=== PATIENT | male | born 1975 | race Hispanic/Latino ===

== ENCOUNTER 2019-06-19 17:23 | Inpatient (IN) | payer OTHER ==
[2019-06-19] MEDS ORDERED: LORazepam 2 MG/ML VIAL IV ONE (18:06)
[2019-06-19] MEDS ORDERED: SODIUM CHLORIDE 0.9% 1000 ML 1,000 ML IV ONE ×2 (18:06→21:04)
[2019-06-19] MEDS ORDERED: ONDANSETRON 4 MG/2 ML INJ IV ONE (18:08)
[2019-06-19] MEDS ORDERED: MORPHINE 4 MG/1 ML INJ IV ONE (18:09)
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
[2019-06-19 18:41] LABS: Basophils % (Auto) 0.9 % (0.0-1.8); Eosinophils # (Auto) 0.1 K/mm3 (0.0-0.4); Eosinophils % (Auto) 1.1 % (0.0-4.3); Hematocrit 53.5 % (35.5-45.6); Hemoglobin 18.3 gm/dl (11.8-15.2); Lymphocytes # (Auto) 1.2 K/mm3 (1.2-5.4); Lymphocytes % (Auto) 22.8 % (13.4-35.0); Mean Corpuscular HGB Conc 34 % (32-34); Mean Corpuscular Volume 97 fl (84-94); Monocytes # (Auto) 0.7 K/mm3 (0.0-0.8); Monocytes % (Auto) 12.9 % (0.0-7.3); Red Blood Count 5.51 M/mm3 (3.65-5.03); Red Cell Distribution Width 13.6 % (13.2-15.2)
[2019-06-19] MEDS ORDERED: THIAMINE 100 MG, FOLIC ACID 1 MG, MULTIPLE VITAMIN INJ, ADULT 10 ML in SODIUM CHLORIDE ... IV ONE (19:00)
[2019-06-19 19:06] LABS: Alanine Aminotransferase 37 units/L (7-56); Albumin 4.5 g/dL (3.9-5); BUN/Creatinine Ratio 11; Blood Urea Nitrogen 8 mg/dL (9-20); Hemolysis Index 5
--- NOTE | 2019-06-19 20:10 | Cat Scan Report ---
CT abdomen pelvis w con INDICATION / CLINICAL INFORMATION: n,v, abd pain, hx of exlap etoh abuse. TECHNIQUE: Routine CT of the abdomen and pelvis with IV contrast All CT scans at this location are performed usi ng CT dose reduction for ALARA by means of automated exposure control. COMPARISON: None available. FINDINGS: Abdomen and pelvis: There is a moderate-sized collection within the anterior fascia of the mid and lo wer abdominal wall that measures approximately 8 x 8 x 3 cm. The liver, gallbladder, spleen, pancreas adrenal glands and kidneys are unremarkable. No free air or free fluid. No bowel obstruction. The appendix is unremarkable. Sigmoid diverticulosis without divert iculitis. Urinary bladder is unremarkable. There is thoracolumbar type degenerative change. IMPRESSION: 1. Prominent collection along the anterior abdominal wall measuring 8 x 8 x 3 cm, as above. This coul d be secondary to abscess versus postoperative collection versus chronic hematoma. 2. Fatty liver. Signer Name: Natanael Cabello MD Signed: 06/19/2019 8:06 PM Workstation Name: [id number]
[2019-06-19 20:11] LABS: Platelet Count 141 K/mm3 (140-440)
--- NOTE | 2019-06-19 21:45 | History and Physical Report ---
History of Present Illness History of present illness: 44-year-old male with no medical history comes emergency room with complaints of abdominal pain that started 2 to 3 weeks ago. Pain is in the left lower quadrant which he describes as a sharp pain, lasting for hours, intensity 5-10, no radiation, cannot identify exacerbating or alleviating factors. Pain was better with pain medication given in the emergency room. Also complains of naus ea vomiting x4 weeks. He has a history of ex lap and hernia repair Review Of Systems: Constitutional: no weight loss, fever, chills Ears, eyes, nose, mouth and throat: no nasal congestion, no nasal discharge, no sinus pressure, blurry vision, diplopia Neck: No neck pain or rigidity. Cardiovascular: No palpitations, chest pain Respiratory: No shortness of breath, cough Gastrointestinal: No hematochezia Genitourinary : no dysuria, frequency Musculoskeletal: no muscle ache , joint pain Integumentary: no rash, no pruritis Neurological: no parathesias, focal weakness Endocrine: no cold or heat intolerance, no polyuria or polydipsia Hematologic/Lymphatic: no easy bruising, no easy bleeding, no gland swelling Allergic/Immunologic: no urticaria, no angioedema. PAST MEDICAL HISTORY: None PAST SURGICAL HISTORY: Ex lap, hernia repair SOCIAL HISTORY: Drinks 5 beers a day, smoked 2 packs a day, no drugs FAMILY HISTORY: Hypertension Medications and Allergies Allergies Allergy/AdvReac Type Severity Reaction Status Date / Time No Known Allergies Allergy Unverified 06/19/19 17:42 Home Medications Medication Instructions Recorded Confirmed Last Taken Type No Known Home Medications [No 06/19/19 06/19/19 Unknown History Reported Home Medications] Active Meds: Active Medications Sodium Chloride (Nacl 0.9% 1000 Ml) 1,000 mls @ 999 mls/hr IV BOLUS ONE Stop: 06/19/19 22:04 Last Admin: 06/19/19 21:08 Dose: 999 mls/hr Documented by: Lorazepam (Ativan) 4 mg IV Q1HR PRN PRN Reason: CIBLAINE-Ar 16-25 Lorazepam (Ativan) 2 mg PO Q1HR PRN PRN Reason: WISAM-Ar 8-15 Exam - Physical Exam Narrative exam: Gen. appearance: Patient lying in bed, no apparent distress HEENT: Normocephalic, atraumatic, pupils equally round and reactive to light, extraocular movement intact, and no sclericterus,. No JVD or thyromegaly or nodule,neck supple, no carotid bruit ,mucous membranes moist, no exudate or e rythema Heart: S1, S2, regular rate and rhythm Lungs: Clear bilaterally, breathing comfortable Abdomen: Positive bowel sounds, tender in the left lower quadrant, no rebound or guard nondistended, no organomegaly Extremity: no edema, cyanosis, clubbing Skin: No rash, nodules, warm, dry Neuro: speech is fluent, cranial nerves II to XII intact, motor and sensory intact - Constitutional Vitals: Temp Pulse Resp BP Pulse Ox 98.4 F 98 H 20 130/82 94 06/19/19 19:11 06/19/19 21:01 06/19/19 21:01 06/19/19 21:01 06/19/19 21:01 Results - Labs CBC & Chem 7: 06/19/19 18:23 06/19/19 18:23 Labs: Abnormal lab results 06/19/19 06/19/19 06/19/19 Range/Units 18:23 18:23 18:23 RBC 5.51 H (3.65-5.03) M/mm3 Hgb 18.3 H (11.8-15.2) gm/dl Hct 53.5 H (35.5-45.6) % MCV 97 H (84-94) fl MCH 33 H (28-32) pg [place] % (Auto) 12.9 H (0.0-7.3) % Carbon Dioxide 20 L (22-30) mmol/L BUN 8 L (9-20) mg/dL Creatinine 0.7 L (0.8-1.5) mg/dL Glucose 108 H (75-100) mg/dL AST 56 H (5-40) units/L Plasma/Serum Alcohol 0.20 H (0-0.07) % - Imaging and Cardiology CT scan - abdomen: report reviewed CT scan - pelvis: report reviewed Assessment and Plan Assessment Abdominal pain Fluid collection possible abscess versus hematoma Doubt abscess, patient without fever or white count Hold antibiotics for now, start IV fluid, surgery was consulted to see the patient IV morphine Alcohol abuse Start CIWA protocol with IV Ativan DVT prophylaxis
[2019-06-19] MEDS: LORazepam 2 MG TAB PO PRN (21:53)
[2019-06-19 21:58] LABS: Bilirubin,Urine NEG (Negative); Blood,Urine NEG (Negative); Color,Urine Yellow (Yellow); Mucus,Urine FEW /HPF; Protein,Urine <15 mg/dL mg/dL (Negative); Urobilinogen,Urine < 2.0 mg/dL (<2.0)
[2019-06-19 22:04] LABS: Amphetamine Screen,Urine PRESUMPTIVE NEGATIVE; Benzodiazepines Screen,Urine PRESUMPTIVE NEGATIVE; Cannabinoid Screen,Urine PRESUMPTIVE NEGATIVE; Cocaine Screen,Urine PRESUMPTIVE NEGATIVE; Methadone Screen,Urine PRESUMPTIVE NEGATIVE; Opiate Screen,Urine PRESUMPTIVE NEGATIVE
[2019-06-19] MEDS ORDERED: ACETAMINOPHEN 325 MG TAB PO PRN (22:24)
[2019-06-19] MEDS ORDERED: MORPHINE 2 MG/1 ML INJ IV PRN (22:24)
[2019-06-19] MEDS ORDERED: SODIUM CHLORIDE 0.45% 1000 ML 1,000 ML IV ONE (22:41)
[2019-06-19] MEDS: SODIUM CHLORIDE 0.45% 1000 ML 1,000 ML IV SCH (22:54)
[2019-06-20] MEDS: LORazepam 2 MG TAB PO PRN (04:11)
[2019-06-20 06:41] LABS: Basophils # (Auto) 0.1 K/mm3 (0.0-0.1); Basophils % (Auto) 1.4 % (0.0-1.8); Eosinophils # (Auto) 0.1 K/mm3 (0.0-0.4); Eosinophils % (Auto) 1.4 % (0.0-4.3); Hematocrit 49.6 % (35.5-45.6); Hemoglobin 17.1 gm/dl (11.8-15.2); Lymphocytes # (Auto) 1.4 K/mm3 (1.2-5.4); Lymphocytes % (Auto) 23.9 % (13.4-35.0); Mean Corpuscular HGB Conc 35 % (32-34); Mean Corpuscular Volume 98 fl (84-94); Monocytes # (Auto) 0.7 K/mm3 (0.0-0.8); Platelet Count 121 K/mm3 (140-440); Red Blood Count 5.08 M/mm3 (3.65-5.03); Red Cell Distribution Width 13.5 % (13.2-15.2)
[2019-06-20 07:10] LABS: BUN/Creatinine Ratio 11; Blood Urea Nitrogen 9 mg/dL (9-20); Calcium 8.5 mg/dL (8.4-10.2); Hemolysis Index 6
[2019-06-20] MEDS: LORazepam 2 MG/ML VIAL IV PRN ×2 (12:20→20:38)
--- NOTE | 2019-06-20 12:48 | Progress Note ---
Assessment and Plan Full consult dictated: 44 y/o alcoholic male admitted with non specific c/o abd pain and vomiting x 3 wks. Pt on DT's protocol and currently sedated. not much history able to be obtained. But pt states had "lump" on abd wall since his hernia surg around 2 years ago. PE - abd wall mass is fixed and non tender. consistent with possi ble hematoma. No real signs of incarcerated hernia. CT - no radiologist available for direct review but area does appear to be consistend with a chronic hematoma. no signs of bowel obst or other gross pathology. imp: non specific abd pain. no clinical or radiographic evidence of sbo, incar cerated hernia or other acute pathology. attempt cl liq diet as jordin review films with radiologist once one is available will follow History of Present Illness History of present illness: 44-year-old male with no medical history comes emergency room with complaints of abdominal pain that started 2 to 3 weeks ago. Pain is in the left lower quadrant which he describes as a sharp pain, lasting for hours, intensity 5-10, no radiation, cannot identify exacerbating or alleviating factors. Pain was better with pain medication given in the emergency room. Also complains of nausea vomiting x4 weeks. He has a history of ex lap and hernia repair Review Of Systems: Constitutional: no weight loss, fever, chills Ears, eyes, nose, mouth and throat: no nasal congestion, no nasal discharge, no sinus pressure, blurry vision, diplopia Neck: No neck pain or rigidity. Cardiovascular: No palpitations, chest pain Respiratory: No shortness of breath, cough Gastrointestinal: No hematochezia Genitourinary : no dysuria, frequency Musculoskeletal: no muscle ache , joint pain Integumentary: no rash, no pruritis Neurological: no parathesias, focal weakness Endocrine: no cold or heat intolerance, no polyuria or polydipsia Hematologic/Lymphatic: no easy bruising, no easy bleeding, no gland swelling Allergic/Immunologic: no urticaria, no angioedema. PAST MEDICAL HISTORY: None PAST SURGICAL HISTORY: Ex lap, hernia repair SOCIAL HISTORY: Drinks 5 beers a day, smoked 2 packs a day, no drugs FAMILY HISTORY: Hypertension CT report: IMPRESSION: 1. Prominent collection along the anterior abdominal wall measuring 8 x 8 x 3 cm, as above. This could be secondary to abscess versus postoperative collection versus chronic hematoma. 2. Fatty liver. Selected Entries 03/01/20 03/01/20 07:29 09:00 Temperature 98.3 F Pulse Rate 85 Respiratory 18 Rate Blood Pressure 123/65 Laboratory Tests 06/20/19 05:50 WBC 5.9 Hgb 17.1 H Hct 49.6 H Objective Vital Signs - 12hr 06/20/19 06/20/19 06/20/19 02:01 04:23 07:29 Temperature 98.0 F 98.3 F Pulse Rate 87 84 Respiratory 20 18 18 Rate Blood Pressure 130/78 123/65 O2 Sat by Pulse 91 94 Oximetry 06/20/19 06/20/19 09:00 09:07 Temperature Pulse Rate 85 Respiratory Rate Blood Pressure O2 Sat by Pulse 94 Oximetry - Labs 06/20/19 05:50 06/20/19 05:50 Diabetes panel 06/19/19 06/20/19 Range/Units 18:23 05:50 Sodium 141 141 (137-145) mmol/L Potassium 3.6 3.6 (3.6-5.0) mmol/L Chloride 101.8 106.1 (98-107) mmol/L Carbon Dioxide 20 L 19 L (22-30) mmol/L BUN 8 L 9 (9-20) mg/dL Creatinine 0.7 L 0.8 (0.8-1.5) mg/dL Glucose 108 H 79 (75-100) mg/dL Calcium 9.0 8.5 (8.4-10.2) mg/dL AST 56 H (5-40) units/L ALT 37 (7-56) units/L Alkaline Phosphatase 70 (35-129) units/L Total Protein 7.6 (6.3-8.2) g/dL Albumin 4.5 (3.9-5) g/dL Calcium panel 06/19/19 06/20/19 Range/Units 18:23 05:50 Calcium 9.0 8.5 (8.4-10.2) mg/dL Albumin 4.5 (3.9-5) g/dL Pituitary panel 06/19/19 06/20/19 Range/Units 18:23 05:50 Sodium 141 141 (137-145) mmol/L Potassium 3.6 3.6 (3.6-5.0) mmol/L Chloride 101.8 106.1 (98-107) mmol/L Carbon Dioxide 20 L 19 L (22-30) mmol/L BUN 8 L 9 (9-20) mg/dL Creatinine 0.7 L 0.8 (0.8-1.5) mg/dL Glucose 108 H 79 (75-100) mg/dL Calcium 9.0 8.5 (8.4-10.2) mg/dL Adrenal panel 06/19/19 06/20/19 Range/Units 18:23 05:50 Sodium 141 141 (137-145) mmol/L Potassium 3.6 3.6 (3.6-5.0) mmol/L Chloride 101.8 106.1 (98-107) mmol/L Carbon Dioxide 20 L 19 L (22-30) mmol/L BUN 8 L 9 (9-20) mg/dL Creatinine 0.7 L 0.8 (0.8-1.5) mg/dL Glucose 108 H 79 (75-100) mg/dL Calcium 9.0 8.5 (8.4-10.2) mg/dL Total Bilirubin 0.60 (0.1-1.2) mg/dL AST 56 H (5-40) units/L ALT 37 (7-56) units/L Alkaline Phosphatase 70 (35-129) units/L Total Protein 7.6 (6.3-8.2) g/dL Albumin 4.5 (3.9-5) g/dL
--- NOTE | 2019-06-20 13:52 | Progress Note ---
Assessment and Plan Assessment and plan: Abdominal pain CT shows Fluid collection possible abscess versus hematoma Hold antibiotics for now, Continue IV fluid, surgery was consulted to see the patient IV morphine Alcohol abuse Started on CIWA protocol with IV Ativan DVT prophylaxis SCDs only because hematoma History Interval history: Abdominal pain Hospitalist Physical - Physical exam Narrative exam: GEN: Not in acute distress, lying in bed, HEENT: Normocephalic, atraumatic, Neck: supple, No JVD Lungs: Clear to auscultation, no crackles, heart;S1 and S2 reg, no murmurs, rubs or gallop Abd:soft, swollen mid abdomen, tender, no rebound, normal bowel sounds, Ext: No edema, no clubbing, no cyanosis Neuro: Awake,alert, oriented X 3, no focal neurological signs - Constitutional Vitals: Temp Pulse Resp BP Pulse Ox 98.3 F 85 18 123/65 94 06/20/19 07:29 06/20/19 09:00 06/20/19 07:29 06/20/19 07:29 06/20/19 09:07 Results - Labs CBC & Chem 7: 06/20/19 05:50 06/20/19 05:50 Labs: Laboratory Last Values WBC 5.9 K/mm3 (4.5-11.0) 06/20/19 05:50 RBC 5.08 M/mm3 (3.65-5.03) H 06/20/19 05:50 Hgb 17.1 gm/dl (11.8-15.2) H 06/20/19 05:50 Hct 49.6 % (35.5-45.6) H 06/20/19 05:50 MCV 98 fl (84-94) H 06/20/19 05:50 MCH 34 pg (28-32) H 06/20/19 05:50 MCHC 35 % (32-34) H 06/20/19 05:50 RDW 13.5 % (13.2-15.2) 06/20/19 05:50 Plt Count 121 K/mm3 (140-440) L 06/20/19 05:50 Lymph % (Auto) 23.9 % (13.4-35.0) 06/20/19 05:50 [place] % (Auto) 12.0 % (0.0-7.3) H 06/20/19 05:50 Eos % (Auto) 1.4 % (0.0-4.3) 06/20/19 05:50 Baso % (Auto) 1.4 % (0.0-1.8) 06/20/19 05:50 Lymph # 1.4 K/mm3 (1.2-5.4) 06/20/19 05:50 [place] # 0.7 K/mm3 (0.0-0.8) 06/20/19 05:50 Eos # 0.1 K/mm3 (0.0-0.4) 06/20/19 05:50 Baso # 0.1 K/mm3 (0.0-0.1) 06/20/19 05:50 Seg Neutrophils % 61.3 % (40.0-70.0) 06/20/19 05:50 Seg Neutrophils # 3.6 K/mm3 (1.8-7.7) 06/20/19 05:50 Sodium 141 mmol/L (137-145) 06/20/19 05:50 Potassium 3.6 mmol/L (3.6-5.0) 06/20/19 05:50 Chloride 106.1 mmol/L (98-107) 06/20/19 05:50 Carbon Dioxide 19 mmol/L (22-30) L 06/20/19 05:50 Anion Gap 20 mmol/L 06/20/19 05:50 BUN 9 mg/dL (9-20) 06/20/19 05:50 Creatinine 0.8 mg/dL (0.8-1.5) 06/20/19 05:50 Estimated GFR > 60 ml/min 06/20/19 05:50 BUN/Creatinine Ratio 11 % 06/20/19 05:50 Glucose 79 mg/dL (75-100) 06/20/19 05:50 Calcium 8.5 mg/dL (8.4-10.2) 06/20/19 05:50 Magnesium 2.10 mg/dL (1.7-2.3) 06/19/19 18:23 Total Bilirubin 0.60 mg/dL (0.1-1.2) 06/19/19 18:23 AST 56 units/L (5-40) H 06/19/19 18:23 ALT 37 units/L (7-56) 06/19/19 18:23 Alkaline Phosphatase 70 units/L (35-129) 06/19/19 18:23 Total Protein 7.6 g/dL (6.3-8.2) 06/19/19 18:23 Albumin 4.5 g/dL (3.9-5) 06/19/19 18:23 Albumin/Globulin Ratio 1.5 % 06/19/19 18:23 Lipase 37 units/L (13-60) 06/19/19 18:23 Urine Color Yellow (Yellow) 06/19/19 21:38 Urine Turbidity Clear (Clear) 06/19/19 21:38 Urine pH 5.0 (5.0-7.0) 06/19/19 21:38 Ur Specific [place] 1.016 (1.003-1.030) 06/19/19 21:38 Urine Protein <15 mg/dl mg/dL (Negative) 06/19/19 21:38 Urine Glucose (UA) Neg mg/dL (Negative) 06/19/19 21:38 Urine Ketones Tr mg/dL (Negative) 06/19/19 21:38 Urine Blood Neg (Negative) 06/19/19 21:38 Urine Nitrite Neg (Negative) 06/19/19 21:38 Urine Bilirubin Neg (Negative) 06/19/19 21:38 Urine Urobilinogen < 2.0 mg/dL (<2.0) 06/19/19 21:38 Ur Leukocyte Esterase Neg (Negative) 06/19/19 21:38 Urine WBC (Auto) 1.0 /HPF (0.0-6.0) 06/19/19 21:38 Urine RBC (Auto) 2.0 /HPF (0.0-6.0) 06/19/19 21:38 U Epithel Cells (Auto) < 1.0 /HPF (0-13.0) 06/19/19 21:38 Urine Mucus Few /HPF 06/19/19 21:38 Urine Opiates Screen Presumptive negative 06/19/19 21:38 Urine Methadone Screen Presumptive negative 06/19/19 21:38 Ur Barbiturates Screen Presumptive negative 06/19/19 21:38 Ur Phencyclidine Scrn Presumptive negative 06/19/19 21:38 Ur Amphetamines Screen Presumptive negative 06/19/19 21:38 U Benzodiazepines Scrn Presumptive negative 06/19/19 21:38 Urine Cocaine Screen Presumptive negative 06/19/19 21:38 U Marijuana (THC) Screen Presumptive negative 06/19/19 21:38 Drugs of Abuse Note Disclamer 06/19/19 21:38 Plasma/Serum Alcohol 0.20 % (0-0.07) H 06/19/19 18:23 Active Medications - Current Medications Current Medications: Generic Name Dose Route Start Last Admin Trade Name Freq PRN Reason Stop Dose Admin Acetaminophen 650 mg 06/19/19 22:24 Tylenol PO Q4H PRN Pain MILD(1-3)/Fever >100.5/YANEZ Sodium Chloride 1,000 mls @ 75 mls/hr 06/19/19 23:00 06/19/19 22:54 Nacl 0.45% 1000 Ml IV 75 mls/hr DIRECT NISHI Administration Lorazepam 4 mg 06/19/19 20:30 06/20/19 12:20 Ativan IV 4 mg Q1HR PRN Administration CIWA-Ar 16-25 Lorazepam 2 mg 06/19/19 20:30 06/20/19 04:11 Ativan PO 2 mg Q1HR PRN Administration CIWA-Ar 8-15 Morphine Sulfate 2 mg 06/19/19 22:24 Morphine IV Q4H PRN Pain, Moderate (4-6) Ondansetron HCl 4 mg 06/19/19 22:24 Zofran IV Q4H PRN Nausea And Vomiting Sodium Chloride 10 ml 06/20/19 10:00 06/20/19 12:20 Sodium Chloride Flush Syringe 10 Ml IV 10 ml BID NISHI Administration Sodium Chloride 10 ml 06/19/19 22:24 Sodium Chloride Flush Syringe 10 Ml IV PRN PRN LINE FLUSH
[2019-06-20] MEDS: SODIUM CHLORIDE 0.45% 1000 ML 1,000 ML IV SCH (17:29)
--- NOTE | 2019-06-20 21:50 | Consultation ---
REASON FOR CONSULTATION: Abdominal mass, rule out incarcerated hernia. HISTORY OF PRESENT ILLNESS: The patient is a 44-year-old alcoholic male who is currently on delirium tremens protocol and has been recently sedated, so history at this time is somewhat limited. It appears the patient was admitted with a chief complaint of a 2-3 week history of abdominal pain and some episodes of nausea and vomiting. A CT scan of the abdomen revealed a prominent fluid collection in the anterior abdominal wall, possibly consistent with an abscess versus hematoma. Thus, the reason for my consultation. For other past medical history, please review the chart. PAST SURGICAL HISTORY: As far as the patient states at present was that for a hernia repair at the site of question. This is approximately 2 years ago. SOCIAL HISTORY: The patient also admits to drinking heavily approximately beers a day. PHYSICAL EXAMINATION: GENERAL: At this time reveals the patient to be sedated, but appears to be in no acute distress. VITAL SIGNS: Shown to be afebrile with a temperature 98.3, blood pressure is 123/65, pulse of 85, respirations of 18. HEENT: Pupils were equally round and reactive to light and accommodation. Sclerae are nonicteric. ABDOMEN: Examination of the abdomen reveals old midline scar. There is palpable mass in the ventral region around the old scar site. However, this mass is fixed and does not move on Valsalva or head elevation. The area is currently nontender. The rest of the abdomen is soft, and nontender. Bowel sounds are present and appear normal. LABORATORY DATA: Lab work at present includes a CBC, which shows a white count of 5.9, H and H is 17 and 49. Electrolytes are essentially within normal limits. LFTs were also essentially within normal limits. CT scan of the abdomen has been performed and as previously mentioned describes the so-called anterior wall of fluid collection consistent with possible abscess versus hematoma. Again, there is no erythema or warmth around the area. Clinically, this appears to be much more so hematoma. Unfortunately, there is no radiologist in-house at present where films can be personally reviewed. IMPRESSION: That of a 44-year-old alcoholic male with a nonspecific 2-3 week history of abdominal pain, nausea and vomiting. The patient does state he has had this lump in the anterior abdominal wall " Clinically, again this appears to be more so a hematoma than an incarcerated hernia. A CT also shows no other evidence of partial bowel obstructions. Clinically, also, the abdomen is soft and does not correlate with bowel obstruction. RECOMMENDATIONS: Would be to attempt clear liquid diet as tolerated if the patient is awake enough for safe swallowing. Also, we will review the CT films personally with the radiologist once one is available. We will follow closely with you. Thank you very much for consultation. JOB# [id number] RISHI/ALTA
[2019-06-21] MEDS: SODIUM CHLORIDE 0.45% 1000 ML 1,000 ML IV SCH (04:39)
--- NOTE | 2019-06-21 10:08 | Progress Note ---
Assessment and Plan Pt status quo. jordin diet Abd soft, non tender reviewed CT with radiologist - probable seroma. no hernia noted surgically stable will follow prn Selected Entries 06/21/19 08:03 Temperature 98.6 F Pulse Rate 65 Respiratory 18 Rate Blood Pressure 132/80 Objective Vital Signs - 12hr 06/20/19 06/21/19 06/21/19 23:11 02:00 03:41 Temperature 98.2 F 98.4 F Pulse Rate 63 78 Pulse Rate [ 61 Apical] Respiratory 16 20 18 Rate Blood Pressure 120/81 147/83 O2 Sat by Pulse 95 97 Oximetry 06/21/19 08:03 Temperature 98.6 F Pulse Rate 65 Pulse Rate [ Apical] Respiratory 18 Rate Blood Pressure 132/80 O2 Sat by Pulse 93 Oximetry - Labs 06/20/19 05:50 06/20/19 05:50
[2019-06-21] MEDS: LORazepam 2 MG/ML VIAL IV PRN ×2 (13:13→21:30)
--- NOTE | 2019-06-21 17:15 | Progress Note ---
Assessment and Plan Assessment and plan: Abdominal pain CT shows Fluid collection most likely chronic seroma/hematoma as per Dr. Miranda, Surgeon Antibiotics not indicated Continue IV fluid, surgery was consulted to see the patient IV morphine Alcohol withdrawal Started on CIWA protocol with IV Ativan DVT prophylaxis SCDs only because hematoma To dc tomorrow if less tremors. History Interval history: Still c/o Abdominal pain Tremors Hospitalist Physical - Physical exam Narrative exam: GEN: Not in acute distress, lying in bed, HEENT: Normocephalic, atraumatic, Neck: supple, No JVD Lungs: Clear to auscultation, no crackles, heart;S1 and S2 reg, no murmurs, rubs or gallop Abd:soft, swollen mid abdomen, tender, no rebound, normal bowel sounds, Ext: No edema, no clubbing, no cyanosis Neuro: Awake,alert, oriented X 3, tremors both hands - Constitutional Vitals: Temp Pulse Resp BP Pulse Ox 98.6 F 81 18 142/92 92 06/21/19 15:57 06/21/19 15:57 06/21/19 15:57 06/21/19 15:57 06/21/19 15:57 Results - Labs CBC & Chem 7: 06/20/19 05:50 06/20/19 05:50 Labs: Laboratory Last Values WBC 5.9 K/mm3 (4.5-11.0) 06/20/19 05:50 RBC 5.08 M/mm3 (3.65-5.03) H 06/20/19 05:50 Hgb 17.1 gm/dl (11.8-15.2) H 06/20/19 05:50 Hct 49.6 % (35.5-45.6) H 06/20/19 05:50 MCV 98 fl (84-94) H 06/20/19 05:50 MCH 34 pg (28-32) H 06/20/19 05:50 MCHC 35 % (32-34) H 06/20/19 05:50 RDW 13.5 % (13.2-15.2) 06/20/19 05:50 Plt Count 121 K/mm3 (140-440) L 06/20/19 05:50 Lymph % (Auto) 23.9 % (13.4-35.0) 06/20/19 05:50 [place] % (Auto) 12.0 % (0.0-7.3) H 06/20/19 05:50 Eos % (Auto) 1.4 % (0.0-4.3) 06/20/19 05:50 Baso % (Auto) 1.4 % (0.0-1.8) 06/20/19 05:50 Lymph # 1.4 K/mm3 (1.2-5.4) 06/20/19 05:50 [place] # 0.7 K/mm3 (0.0-0.8) 06/20/19 05:50 Eos # 0.1 K/mm3 (0.0-0.4) 06/20/19 05:50 Baso # 0.1 K/mm3 (0.0-0.1) 06/20/19 05:50 Seg Neutrophils % 61.3 % (40.0-70.0) 06/20/19 05:50 Seg Neutrophils # 3.6 K/mm3 (1.8-7.7) 06/20/19 05:50 Sodium 141 mmol/L (137-145) 06/20/19 05:50 Potassium 3.6 mmol/L (3.6-5.0) 06/20/19 05:50 Chloride 106.1 mmol/L (98-107) 06/20/19 05:50 Carbon Dioxide 19 mmol/L (22-30) L 06/20/19 05:50 Anion Gap 20 mmol/L 06/20/19 05:50 BUN 9 mg/dL (9-20) 06/20/19 05:50 Creatinine 0.8 mg/dL (0.8-1.5) 06/20/19 05:50 Estimated GFR > 60 ml/min 06/20/19 05:50 BUN/Creatinine Ratio 11 % 06/20/19 05:50 Glucose 79 mg/dL (75-100) 06/20/19 05:50 Calcium 8.5 mg/dL (8.4-10.2) 06/20/19 05:50 Magnesium 2.10 mg/dL (1.7-2.3) 06/19/19 18:23 Total Bilirubin 0.60 mg/dL (0.1-1.2) 06/19/19 18:23 AST 56 units/L (5-40) H 06/19/19 18:23 ALT 37 units/L (7-56) 06/19/19 18:23 Alkaline Phosphatase 70 units/L (35-129) 06/19/19 18:23 Total Protein 7.6 g/dL (6.3-8.2) 06/19/19 18:23 Albumin 4.5 g/dL (3.9-5) 06/19/19 18:23 Albumin/Globulin Ratio 1.5 % 06/19/19 18:23 Lipase 37 units/L (13-60) 06/19/19 18:23 Urine Color Yellow (Yellow) 06/19/19 21:38 Urine Turbidity Clear (Clear) 06/19/19 21:38 Urine pH 5.0 (5.0-7.0) 06/19/19 21:38 Ur Specific [place] 1.016 (1.003-1.030) 06/19/19 21:38 Urine Protein <15 mg/dl mg/dL (Negative) 06/19/19 21:38 Urine Glucose (UA) Neg mg/dL (Negative) 06/19/19 21:38 Urine Ketones Tr mg/dL (Negative) 06/19/19 21:38 Urine Blood Neg (Negative) 06/19/19 21:38 Urine Nitrite Neg (Negative) 06/19/19 21:38 Urine Bilirubin Neg (Negative) 06/19/19 21:38 Urine Urobilinogen < 2.0 mg/dL (<2.0) 06/19/19 21:38 Ur Leukocyte Esterase Neg (Negative) 06/19/19 21:38 Urine WBC (Auto) 1.0 /HPF (0.0-6.0) 06/19/19 21:38 Urine RBC (Auto) 2.0 /HPF (0.0-6.0) 06/19/19 21:38 U Epithel Cells (Auto) < 1.0 /HPF (0-13.0) 06/19/19 21:38 Urine Mucus Few /HPF 06/19/19 21:38 Urine Opiates Screen Presumptive negative 06/19/19 21:38 Urine Methadone Screen Presumptive negative 06/19/19 21:38 Ur Barbiturates Screen Presumptive negative 06/19/19 21:38 Ur Phencyclidine Scrn Presumptive negative 02/29/20 21:38 Ur Amphetamines Screen Presumptive negative 06/19/19 21:38 U Benzodiazepines Scrn Presumptive negative 06/19/19 21:38 Urine Cocaine Screen Presumptive negative 06/19/19 21:38 U Marijuana (THC) Screen Presumptive negative 06/19/19 21:38 Drugs of Abuse Note Disclamer 06/19/19 21:38 Plasma/Serum Alcohol 0.20 % (0-0.07) H 06/19/19 18:23 Active Medications - Current Medications Current Medications: Generic Name Dose Route Start Last Admin Trade Name Freq PRN Reason Stop Dose Admin Acetaminophen 650 mg 06/19/19 22:24 Tylenol PO Q4H PRN Pain MILD(1-3)/Fever >100.5/YANEZ Sodium Chloride 1,000 mls @ 75 mls/hr 06/19/19 23:00 06/21/19 04:39 Nacl 0.45% 1000 Ml IV 75 mls/hr DIRECT NISHI Administration Lorazepam 4 mg 06/19/19 20:30 06/21/19 13:13 Ativan IV 4 mg Q1HR PRN Administration CIWA-Ar 16-25 Lorazepam 2 mg 06/19/19 20:30 06/20/19 04:11 Ativan PO 2 mg Q1HR PRN Administration CIWA-Ar 8-15 Morphine Sulfate 2 mg 06/19/19 22:24 06/21/19 10:18 Morphine IV 2 mg Q4H PRN Administration Pain, Moderate (4-6) Ondansetron HCl 4 mg 06/19/19 22:24 Zofran IV Q4H PRN Nausea And Vomiting Sodium Chloride 10 ml 06/20/19 10:00 06/21/19 10:19 Sodium Chloride Flush Syringe 10 Ml IV 10 ml BID NISHI Administration Sodium Chloride 10 ml 06/19/19 22:24 Sodium Chloride Flush Syringe 10 Ml IV PRN PRN LINE FLUSH
[2019-06-22] MEDS: SODIUM CHLORIDE 0.45% 1000 ML 1,000 ML IV SCH (09:29)
[2019-06-22] MEDS: LORazepam 2 MG TAB PO PRN ×3 (09:48→21:28)
[2019-06-22] MEDS: ONDANSETRON 4 MG/2 ML INJ IV PRN (10:06)
--- NOTE | 2019-06-22 10:20 | Discharge Summary ---
Providers - Providers Date of Admission: 06/19/19 21:44 Date of discharge: 06/23/19 Attending physician: GURWINDER SEARS 06/19/19 21:14 Consult to Physician [CONS] Urgent Comment: Dr. Dacosta spoke with Dr. 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 The patient was admitted with diagnosis of alcohol withdrawal and abdominal pain. CT scan revealed fluid collection most likely chronic seroma/hematoma. Surgery was consulted and reported antibiotics were not indicated and conservative management. Patient also received IV fluid hydration and medications for pain control. With regards to the alcohol withdrawal, patient was placed on CIWA protocol with IV Ativan. Patient stabilized and was felt to have received maximal hospital benefit for discharge. Dedicated discharge time 32 minutes. Disposition: - TO HOME OR SELFCARE Time spent for discharge: 32 - Discharge Diagnoses (1) Abdominal fluid collection Status: Acute (2) Alcohol abuse Status: Acute (3) Nausea and vomiting Status: Acute Core Measure Documentation - Palliative Care Palliative Care/ Comfort Measures: Not Applicable - Core Measures Any of the following diagnoses?: none Exam - Constitutional Vitals: Temp Pulse Resp BP Pulse Ox 97.9 F 57 L 20 130/73 95 06/22/19 07:41 06/22/19 07:41 06/22/19 07:41 06/22/19 07:41 06/22/19 07:41 General appearance: Present: no acute distress, well-nourished - EENT Eyes: Present: PERRL ENT: hearing intact, clear oral mucosa - Neck Neck: Present: supple, normal ROM - Respiratory Respiratory effort: normal Respiratory: bilateral: CTA - Cardiovascular Heart Sounds: Present: S1 & S2. Absent: rub, click - Extremities Extremities: pulses symmetrical, No edema Peripheral Pulses: within normal limits - Abdominal General gastrointestinal: Present: soft, non-tender, non-distended, normal bowel sounds Male genitourinary: Present: normal - Integumentary Integumentary: Present: clear, warm, dry - Musculoskeletal Musculoskeletal: gait normal, strength equal bilaterally - Psychiatric Psychiatric: appropriate mood/affect, intact judgment & insight - Neurologic Neurologic: CNII-XII intact, moves all extremities Plan Activity: advance as tolerated Weight Bearing Status: Weight Bear as Tolerated Diet: regular Follow up with: PRIMARY CARE, [Primary Care Provider] - 7 Days Prescriptions: oxyCODONE /ACETAMINOPHEN [Percocet 5/325] 1 tab PO Q6HR PRN #10 tablet PRN Reason: Pain
[2019-06-22] MEDS: LORazepam 2 MG/ML VIAL IV PRN (11:52)
--- NOTE | 2019-06-22 12:42 | Progress Note ---
Assessment and Plan Assessment and plan: Intractable nausea and vomiting. Check lipase. Stop IV morphine. Abdominal pain CT shows Fluid collection most likely chronic seroma/hematoma as per Dr. Miranda, Surgeon Antibiotics not indicated Continue IV fluid, Alcohol withdrawal Continue CIWA protocol with IV Ativan. Patient still with a CIWA score of 14 DVT prophylaxis SCDs only because hematoma - Patient Problems (1) Abdominal fluid collection Current Visit: Yes Status: Acute (2) Alcohol abuse Current Visit: Yes Status: Acute (3) Nausea and vomiting Current Visit: Yes Status: Acute History Interval history: Patient still complains of nausea and vomiting. Hospitalist Physical - Constitutional Vitals: Temp Pulse Resp BP Pulse Ox 97.9 F 57 L 20 130/73 95 06/22/19 07:41 06/22/19 07:41 06/22/19 07:41 06/22/19 07:41 06/22/19 07:41 General appearance: Present: no acute distress, well-nourished - EENT Eyes: Present: PERRL, EOM intact ENT: hearing intact, clear oral mucosa, dentition normal - Neck Neck: Present: supple, normal ROM - Respiratory Respiratory effort: normal Respiratory: bilateral: CTA - Cardiovascular Rhythm: regular Heart Sounds: Present: S1 & S2. Absent: gallop, rub - Extremities Extremities: no ischemia, No edema, Full ROM - Abdominal General gastrointestinal: soft, non-tender, non-distended, normal bowel sounds - Integumentary Integumentary: Present: clear, warm, dry - Neurologic Neurologic: CNII-XII intact, moves all extremities Results - Labs CBC & Chem 7: 06/20/19 05:50 06/20/19 05:50 Labs: Laboratory Last Values WBC 5.9 K/mm3 (4.5-11.0) 06/20/19 05:50 RBC 5.08 M/mm3 (3.65-5.03) H 06/20/19 05:50 Hgb 17.1 gm/dl (11.8-15.2) H 06/20/19 05:50 Hct 49.6 % (35.5-45.6) H 06/20/19 05:50 MCV 98 fl (84-94) H 06/20/19 05:50 MCH 34 pg (28-32) H 06/20/19 05:50 MCHC 35 % (32-34) H 06/20/19 05:50 RDW 13.5 % (13.2-15.2) 06/20/19 05:50 Plt Count 121 K/mm3 (140-440) L 06/20/19 05:50 Lymph % (Auto) 23.9 % (13.4-35.0) 06/20/19 05:50 [place] % (Auto) 12.0 % (0.0-7.3) H 06/20/19 05:50 Eos % (Auto) 1.4 % (0.0-4.3) 06/20/19 05:50 Baso % (Auto) 1.4 % (0.0-1.8) 06/20/19 05:50 Lymph # 1.4 K/mm3 (1.2-5.4) 06/20/19 05:50 [place] # 0.7 K/mm3 (0.0-0.8) 06/20/19 05:50 Eos # 0.1 K/mm3 (0.0-0.4) 06/20/19 05:50 Baso # 0.1 K/mm3 (0.0-0.1) 06/20/19 05:50 Seg Neutrophils % 61.3 % (40.0-70.0) 06/20/19 05:50 Seg Neutrophils # 3.6 K/mm3 (1.8-7.7) 06/20/19 05:50 Sodium 141 mmol/L (137-145) 06/20/19 05:50 Potassium 3.6 mmol/L (3.6-5.0) 06/20/19 05:50 Chloride 106.1 mmol/L (98-107) 06/20/19 05:50 Carbon Dioxide 19 mmol/L (22-30) L 06/20/19 05:50 Anion Gap 20 mmol/L 06/20/19 05:50 BUN 9 mg/dL (9-20) 06/20/19 05:50 Creatinine 0.8 mg/dL (0.8-1.5) 06/20/19 05:50 Estimated GFR > 60 ml/min 06/20/19 05:50 BUN/Creatinine Ratio 11 % 06/20/19 05:50 Glucose 79 mg/dL (75-100) 06/20/19 05:50 Calcium 8.5 mg/dL (8.4-10.2) 06/20/19 05:50 Magnesium 2.10 mg/dL (1.7-2.3) 06/19/19 18:23 Total Bilirubin 0.60 mg/dL (0.1-1.2) 06/19/19 18:23 AST 56 units/L (5-40) H 06/19/19 18:23 ALT 37 units/L (7-56) 06/19/19 18:23 Alkaline Phosphatase 70 units/L (35-129) 06/19/19 18:23 Total Protein 7.6 g/dL (6.3-8.2) 06/19/19 18:23 Albumin 4.5 g/dL (3.9-5) 06/19/19 18:23 Albumin/Globulin Ratio 1.5 % 06/19/19 18:23 Lipase 37 units/L (13-60) 06/19/19 18:23 Urine Color Yellow (Yellow) 06/19/19 21:38 Urine Turbidity Clear (Clear) 06/19/19 21:38 Urine pH 5.0 (5.0-7.0) 06/19/19 21:38 Ur Specific [place] 1.016 (1.003-1.030) 06/19/19 21:38 Urine Protein <15 mg/dl mg/dL (Negative) 06/19/19 21:38 Urine Glucose (UA) Neg mg/dL (Negative) 06/19/19 21:38 Urine Ketones Tr mg/dL (Negative) 06/19/19 21:38 Urine Blood Neg (Negative) 06/19/19 21:38 Urine Nitrite Neg (Negative) 06/19/19 21:38 Urine Bilirubin Neg (Negative) 06/19/19 21:38 Urine Urobilinogen < 2.0 mg/dL (<2.0) 06/19/19 21:38 Ur Leukocyte Esterase Neg (Negative) 06/19/19 21:38 Urine WBC (Auto) 1.0 /HPF (0.0-6.0) 06/19/19 21:38 Urine RBC (Auto) 2.0 /HPF (0.0-6.0) 06/19/19 21:38 U Epithel Cells (Auto) < 1.0 /HPF (0-13.0) 06/19/19 21:38 Urine Mucus Few /HPF 06/19/19 21:38 Urine Opiates Screen Presumptive negative 06/19/19 21:38 Urine Methadone Screen Presumptive negative 06/19/19 21:38 Ur Barbiturates Screen Presumptive negative 06/19/19 21:38 Ur Phencyclidine Scrn Presumptive negative 06/19/19 21:38 Ur Amphetamines Screen Presumptive negative 06/19/19 21:38 U Benzodiazepines Scrn Presumptive negative 06/19/19 21:38 Urine Cocaine Screen Presumptive negative 06/19/19 21:38 U Marijuana (THC) Screen Presumptive negative 06/19/19 21:38 Drugs of Abuse Note Disclamer 06/19/19 21:38 Plasma/Serum Alcohol 0.20 % (0-0.07) H 06/19/19 18:23 Active Medications - Current Medications Current Medications: Generic Name Dose Route Start Last Admin Trade Name Freq PRN Reason Stop Dose Admin Acetaminophen 650 mg 06/19/19 22:24 Tylenol PO Q4H PRN Pain MILD(1-3)/Fever >100.5/YANEZ Sodium Chloride 1,000 mls @ 75 mls/hr 06/19/19 23:00 06/22/19 09:29 Nacl 0.45% 1000 Ml IV 75 mls/hr DIRECT NISHI Administration Lorazepam 4 mg 06/19/19 20:30 06/22/19 11:52 Ativan IV 4 mg Q1HR PRN Administration CIWA-Ar 16-25 Lorazepam 2 mg 06/19/19 20:30 06/22/19 09:48 Ativan PO 2 mg Q1HR PRN Administration CIWA-Ar 8-15 Morphine Sulfate 2 mg 06/19/19 22:24 06/21/19 10:18 Morphine IV 2 mg Q4H PRN Administration Pain, Moderate (4-6) Ondansetron HCl 4 mg 06/19/19 22:24 06/22/19 10:06 Zofran IV 4 mg Q4H PRN Administration Nausea And Vomiting Sodium Chloride 10 ml 06/20/19 10:00 06/22/19 10:00 Sodium Chloride Flush Syringe 10 Ml IV 10 ml BID NISHI Administration Sodium Chloride 10 ml 06/19/19 22:24 Sodium Chloride Flush Syringe 10 Ml IV PRN PRN LINE FLUSH
[2019-06-23] MEDS: SODIUM CHLORIDE 0.45% 1000 ML 1,000 ML IV SCH (01:23)
[2019-06-23] MEDS: ONDANSETRON 4 MG/2 ML INJ IV PRN (08:00)
[2019-06-23 08:57] VITALS: BP 122/74
== END 2019-06-23 15:15 | disposition home or self-care (01) | DRG 914 ==
LOC: ED 17:23 → 4A 21:44
PROVIDERS: ADMIT Internal Medicine; ATTEND Hospitalist
DX: T14.8XXA Other injury of unspecified body region, initial encounter (principal); F10.239 Alcohol dependence with withdrawal, unspecified; F17.200 Nicotine dependence, unspecified, uncomplicated; Z82.49 Family history of ischemic heart disease and other diseases of the circulatory system; Y93.89 Activity, other specified; Y92.89 Other specified places as the place of occurrence of the external cause; Y99.8 Other external cause status
CPT/HCPCS: 36415; 74177; 80048; 80053; 80307; 80320; 81001; 83690; 83735; 85025; 96365; 96375; G0378; G0480; J2060; J2270; J2405; J3411; J7030; Q9967

== ENCOUNTER 2019-11-25 20:52 | Inpatient (IN) | payer OTHER, SELFPAY ==
[2019-11-25] MEDS ORDERED: KETOROLAC 30 MG/1 ML INJ IV ONE (21:27)
[2019-11-25] MEDS ORDERED: ONDANSETRON 4 MG/2 ML INJ IV ONE (21:27)
[2019-11-25] MEDS ORDERED: fentaNYL 100 MCG/2 ML INJ IV ONE ×2 (21:27→22:41)
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
[2019-11-25 22:57] LABS: Basophils # (Auto) 0.1 K/mm3 (0.0-0.1); Basophils % (Auto) 1.2 % (0.0-1.8); Eosinophils # (Auto) 0.2 K/mm3 (0.0-0.4); Eosinophils % (Auto) 2.5 % (0.0-4.3); Lymphocytes # (Auto) 1.3 K/mm3 (1.2-5.4); Lymphocytes % (Auto) 18.1 % (13.4-35.0); Mean Corpuscular HGB Conc 35 % (32-34); Mean Corpuscular Volume 96 fl (84-94); Monocytes # (Auto) 0.8 K/mm3 (0.0-0.8); Monocytes % (Auto) 10.2 % (0.0-7.3); Red Blood Count 5.58 M/mm3 (3.65-5.03); Red Cell Distribution Width 13.3 % (13.2-15.2)
--- NOTE | 2019-11-25 22:59 | XRay Report ---
CHEST 1 VIEW 2245 INDICATION / CLINICAL INFORMATION: Preop COMPARISON: None available. FINDINGS: SUPPORT DEVICES: None HEART / MEDIASTINUM: Mild cardiac prominence LUNGS / PLEURA: No significant pulmonary or pleural abnormality. No pneumothorax. ADDITIONAL FINDINGS: No significant additional findings. IMPRESSION: No significant acute abnormality Signer Name: Kurt Soto MD Signed: 11/25/2019 10:55 PM Workstation Name: [id number]
[2019-11-25 23:07] LABS: Hematocrit 53.5 % (35.5-45.6); Hemoglobin 18.9 gm/dl (11.8-15.2); Platelet Count 146 K/mm3 (140-440)
[2019-11-25 23:19] LABS: BUN/Creatinine Ratio 8; Blood Urea Nitrogen 6 mg/dL (9-20); Calcium 9.3 mg/dL (8.4-10.2); Hemolysis Index 16
[2019-11-25 23:25] LABS: INR 1.16 (0.87-1.13)
[2019-11-25 23:26] LABS: Partial Thromboplastin Time 26.1 Sec. (24.2-36.6)
[2019-11-26] MEDS ORDERED: SODIUM CHLORIDE 0.9% 1000 ML 1,000 ML IV ONE ×2 (00:08)
--- NOTE | 2019-11-26 01:18 | Cat Scan Report ---
CT LEFT KNEE WITHOUT CONTRAST INDICATION: Tibial plateau fracture CONTRAST: Without IV COMPARISON: Left knee radiographs tonight All CT scans at this location are performed using CT dose reduction for ALARA by means of automated e xposure control. FINDINGS: Moderate soft tissue edema is seen anteriorly throughout the knee region, particularly belo w the knee joint in the subcutaneous tissues. Moderate joint effusion is seen with blood and a fat fl uid level. Mild patellofemoral degenerative changes are seen with slight lateral degenerative changes . I see no fracture of the patella or femur. As seen on radiographs, there is a badly comminuted proximal tibial fracture. This markedly involves the lateral tibial plateau which is depressed by approximately 2.5 cm in some areas with impaction no andrea. A primary fracture line is seen transversely through the mid metaphyseal region with the lateral aspect of the metaphysis and epiphyseal region markedly comminuted with innumerable fragments, many impacted. Displacement of the lateral aspect of the proximal tibia laterally is seen. Fracture lines extend to the tibial spine area. I do not clearly see a medial tibial plateau fracture. No significan t angulation or displacement of the major distal shaft fragment is seen. No dislocation is noted. There appears to be a tiny avulsion from the anterior aspect of the fibular epiphyseal region but no other fibular fractures are seen. IMPRESSION: 1. Markedly comminuted proximal tibial fracture 2. Minimal fibular avulsion Signer Name: Kurt Soto MD Signed: 11/26/2019 1:13 AM Workstation Name: [id number]
[2019-11-26] MEDS ORDERED: ACETAMINOPHEN 325 MG TAB PO PRN (01:44)
[2019-11-26] MEDS ORDERED: MAGNESIUM HYDROXIDE (MOM) ORAL LIQD UDC PO PRN (01:44)
[2019-11-26] MEDS ORDERED: MORPHINE 2 MG/1 ML INJ IV PRN (01:44)
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
[2019-11-26] MEDS ORDERED: SODIUM CHLORIDE 0.9% 1000 ML 1,000 ML ONE (02:15)
[2019-11-26] MEDS ORDERED: ACETAMINOPHEN 325 MG TAB ONE (02:22)
[2019-11-26] MEDS: HYDROmorphone 1 MG/1 ML INJ IV PRN ×7 (03:37→23:34)
--- NOTE | 2019-11-26 15:37 | Anesthesia Consultation ---
Anesthesia Consult and Med Hx Date of service: 11/26/19 - Airway Anesthetic Teeth Evaluation: Good ROM Head & Neck: Adequate Mental/Hyoid Distance: Adequate Mallampati Class: Class II Intubation Access Assessment: Probably Good - Pre-Operative Health Status ASA Pre-Surgery Classification: ASA3 Proposed Anesthetic Plan: General - Pulmonary Hx Smoking: Yes Hx Asthma: No Hx Respiratory Symptoms: No SOB: Yes COPD: No Home Oxygen Therapy: No Hx Pneumonia: No Hx Sleep Apnea: Yes - Cardiovascular System Hx Hypertension: No Hx Coronary Artery Disease: No (States as a child mom said he has an enlarged heart venticle. ) Hx Heart Attack/AMI: No Hx Angina: No Hx Percutaneous Transluminal Coronary Angioplasty (PTCA): No Hx Cardia Arrhythmia: No Hx Pacemaker: No Hx Internal Defibrillator: No Hx Valvular Heart Disease: No Hx Heart Murmur: No Hx Peripheral Vascular Disease: No - Central Nervous System Hx Neuromuscular Disorder: No Hx Seizures: No CVA: No Hx Back Pain: No Hx Psychiatric Problems: No - Gastrointestinal Hx Ulcer: No Hx Gastroesophageal Reflux Disease: No - Endocrine Hx Renal Disease: No Hx End Stage Renal Disease: No Hx Cirrhosis: No Hx Liver Disease: No Hx Insulin Dependent Diabetes: No Hx Non-Insulin Dependent Diabetes: No Hx Thyroid Disease: No Hx Hypothyroidism: No Hx Hyperthyroidism: No - Hematic Hx Anemia: No Hx Sickle Cell Disease: No - Other Systems Hx Alcohol Use: Yes (beer) Hx Substance Use: No Hx Cancer: No Hx Obesity: Yes
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
--- NOTE | 2019-11-26 15:45 | Anesthesia Day of Surgery ---
Anesthesia Day of Surgery - Day of Surgery Patient Examined: Yes Patient H&P Reviewed: Yes Patient is NPO: Yes
[2019-11-26] MEDS ORDERED: dexAMETHasone 20 MG/5 ML VIAL ONE (16:30)
[2019-11-26] MEDS ORDERED: SUCCINYLCHOLINE CHLORIDE 200 MG/10 ML INJ MDV ONE (16:30)
[2019-11-26] MEDS ORDERED: GLYCOPYRROLATE 0.4 MG/2 ML INJ ONE (16:30)
[2019-11-26] MEDS ORDERED: ONDANSETRON 4 MG/2 ML INJ ONE (16:30)
[2019-11-26] MEDS ORDERED: LIDOCAINE MPF (2%) 20 MG/1 ML VIAL 5 ML ONE (16:30)
[2019-11-26] MEDS ORDERED: PHENYLEPHRINE/NS 1,000 MCG/10 ML SYRINGE (OR USE) IV ONE (16:30)
[2019-11-26] MEDS ORDERED: HYDROmorphone 1 MG/1 ML INJ ONE ×2 (16:31→17:55)
[2019-11-26] MEDS ORDERED: ePHEDrine SULFATE 50 MG/1 ML INJ ONE (16:31)
[2019-11-26] MEDS ORDERED: propofoL 200 MG/20 ML VIAL IV ONE (16:31)
[2019-11-26] MEDS ORDERED: HYDROmorphone 1 MG/1 ML INJ IV PRN (16:34)
[2019-11-26] MEDS ORDERED: MIDAZOLAM 2 MG/2 ML INJ ONE (16:35)
[2019-11-26] MEDS ORDERED: KETAMINE/STERILE WATER 50 MG/ML SYRINGE ONE (16:41)
[2019-11-26] MEDS ORDERED: ceFAZolin/Water 2 GM/20 ML 2 GM/20 ML SYRINGE IV ONE (17:02)
[2019-11-26] MEDS ORDERED: MORPHINE 4 MG/1 ML INJ IV PRN (18:11)
--- NOTE | 2019-11-26 18:32 | Procedure Note ---
Date of procedure: 11/26/19 Pre-op diagnosis: Displaced intra-articular comminuted tibial plateau fracture Post-op diagnosis: same Procedure: Closed reduction application of external fixator left leg Procedure Patient was brought to the OR on the hospital bed following induction and intubation anesthesia the patient was placed onto the operating room table supine. The left lower extremity was then prepped and draped in the usual sterile manner. A timeout procedure was done to identify the patient and the correct operative site. Using C arm fluoroscopy the entry portals for Schanz screws were located in the distal third portion of the femur, next 2 screws secured thru to distal cortex, next connecting Multi Pin clamp applied proximally. Next the tibial portion began with placement of our most distal screw and followed 2nd proximal screw using a 2nd Multi Pin clamp. The radiolucent carbon fiber rods were attached to the multi pin clamps the reduction was then carried with carried out using longitudinal traction next the clamps were then tightened in a reduced position AP and lateral views were obtained showing good reduction at the fracture site and maintaining proper length of fracture fragments following this the pin sites were cleaned routine postop dressings were applied patient tolerated procedure Anesthesia: GETA Surgeon: NICA ESPINOSA Estimated blood loss: minimal Pathology: none Condition: stable Disposition: PACU
--- NOTE | 2019-11-26 19:03 | XRay Report ---
LEFT KNEE 4 VIEWS INDICATION / CLINICAL INFORMATION: LT EX-FIX, TIBIA PLEATEAU FX. COMPARISON: 11/25/2019 FINDINGS: Intraoperative images show placement of distal femoral and proximal tibial hardware for stabilization of the proximal tibial fracture. Fluoroscopy time 31 seconds. 3 images. Signer Name: Everett Schaffer MD Signed: 11/26/2019 6:59 PM Workstation Name: [id number]
[2019-11-26] MEDS: SODIUM CHLORIDE 0.9% 1000 ML 1,000 ML IV SCH (21:15)
[2019-11-26] MEDS: NICOTINE 21 MG/24 HR PATCH TD SCH (21:15)
[2019-11-27] MEDS: HYDROmorphone 1 MG/1 ML INJ IV PRN ×6 (02:52→21:14)
[2019-11-27] MEDS: HYDROcodone/ACETAMINOPHEN 5-325 MG TAB PO PRN ×2 (06:18→13:50)
[2019-11-27 07:32] LABS: Basophils # (Auto) 0.1 K/mm3 (0.0-0.1); Basophils % (Auto) 0.5 % (0.0-1.8); Hematocrit 43.2 % (35.5-45.6); Hemoglobin 14.9 gm/dl (11.8-15.2); Lymphocytes # (Auto) 0.8 K/mm3 (1.2-5.4); Mean Corpuscular HGB Conc 35 % (32-34); Mean Corpuscular Volume 97 fl (84-94); Monocytes # (Auto) 0.8 K/mm3 (0.0-0.8); Monocytes % (Auto) 7.9 % (0.0-7.3); Platelet Count 122 K/mm3 (140-440); Red Blood Count 4.46 M/mm3 (3.65-5.03); Red Cell Distribution Width 13.2 % (13.2-15.2)
[2019-11-27 07:39] LABS: INR 1.11 (0.87-1.13)
[2019-11-27 07:46] LABS: Blood Urea Nitrogen 9 mg/dL (9-20); Calcium 8.1 mg/dL (8.4-10.2); Hemolysis Index 9
[2019-11-27 07:48] LABS: BUN/Creatinine Ratio 13
[2019-11-27] MEDS: NICOTINE 21 MG/24 HR PATCH TD SCH (09:08)
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
--- NOTE | 2019-11-27 18:14 | Progress Note ---
Assessment and Plan Status post external fixation left lower extremity Subjective Date of service: 11/27/19 Principal diagnosis: Tibial plateau fracture left knee Interval history: Less pain now than before Objective Vital signs: Vital Signs - 12hr 11/27/19 11/27/19 11/27/19 06:18 08:09 11:58 Temperature 98.3 F 98.3 F Pulse Rate 75 74 Respiratory 18 18 18 Rate Blood Pressure 125/71 115/70 O2 Sat by Pulse 95 92 Oximetry 11/27/19 16:19 Temperature 98.2 F Pulse Rate 74 Respiratory 18 Rate Blood Pressure 117/63 O2 Sat by Pulse 93 Oximetry Incision: clean and dry Weight bearing status: partial - Labs CBC & BMP: 11/27/19 06:05 11/27/19 06:05 Labs: Abnormal lab results 11/27/19 11/27/19 Range/Units 06:05 06:05 MCV 97 H (84-94) fl MCH 33 H (28-32) pg MCHC 35 H (32-34) % Plt Count 122 L (140-440) K/mm3 Lymph % (Auto) 8.0 L (13.4-35.0) % [place] % (Auto) 7.9 H (0.0-7.3) % Lymph # 0.8 L (1.2-5.4) K/mm3 Seg Neutrophils % 83.6 H (40.0-70.0) % Seg Neutrophils # 8.8 H (1.8-7.7) K/mm3 Creatinine 0.7 L (0.8-1.3) mg/dL Glucose 143 H (75-100) mg/dL Calcium 8.1 L (8.4-10.2) mg/dL
[2019-11-27] MEDS: SODIUM CHLORIDE 0.9% 1000 ML 1,000 ML IV SCH (21:12)
[2019-11-28] MEDS: HYDROcodone/ACETAMINOPHEN 5-325 MG TAB PO PRN ×2 (01:09→06:44)
[2019-11-28] MEDS: HYDROmorphone 1 MG/1 ML INJ IV PRN ×6 (03:33→23:50)
[2019-11-28] MEDS: NICOTINE 21 MG/24 HR PATCH TD SCH (09:56)
[2019-11-28] MEDS: SODIUM CHLORIDE 0.9% 1000 ML 1,000 ML IV SCH (10:01)
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
[2019-11-29] MEDS: HYDROcodone/ACETAMINOPHEN 5-325 MG TAB PO PRN (03:41)
[2019-11-29] MEDS: HYDROmorphone 1 MG/1 ML INJ IV PRN ×6 (06:23→23:53)
[2019-11-29] MEDS: SODIUM CHLORIDE 0.9% 1000 ML 1,000 ML IV SCH ×2 (06:23→23:19)
[2019-11-29] MEDS: NICOTINE 21 MG/24 HR PATCH TD SCH (09:31)
--- NOTE | 2019-11-29 16:39 | Progress Note ---
Assessment and Plan Status post external fixation left lower extremity patient homeless awaiting placement.... Subjective Principal diagnosis: Tibial plateau fracture left knee Interval history: c/o pain left leg Objective Vital signs: Vital Signs - 12hr 11/29/19 11/29/19 11/29/19 05:03 06:23 06:55 Temperature 98.5 F 98.9 F Pulse Rate 63 75 Respiratory 18 20 20 Rate Blood Pressure 146/88 131/95 Blood Pressure [Right] O2 Sat by Pulse 96 95 Oximetry 11/29/19 11/29/19 10:49 16:35 Temperature 98.8 F 98.9 F Pulse Rate 79 88 Respiratory 16 20 Rate Blood Pressure 119/73 Blood Pressure 135/72 [Right] O2 Sat by Pulse 96 97 Oximetry Incision: draining, swollen Weight bearing status: partial - Labs CBC & BMP: 11/27/19 06:05 11/27/19 06:05
[2019-11-30] MEDS: HYDROmorphone 1 MG/1 ML INJ IV PRN ×6 (02:51→20:14)
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
--- NOTE | 2019-11-30 07:47 | Progress Note ---
Assessment and Plan Assessment and Plan - Patient Problems (1) Fracture of left tibial plateau Current Visit: Yes Status: Acute Plan to address problem: Orthopedic consult appreciated Closed reduction application of external fixator left leg Patient tolerated the procedure well Patient undergoing physical therapy (2) DVT prophylaxis Current Visit: Yes Status: Acute Plan to address problem: Patient on sequential compression device. (3) Full code status Current Visit: Yes Status: Acute 4)Discharge planning issues Patient is ready for discharge, discharge order placed, patient is apparently homeless case management for [facility] placement Subjective Date of service: 11/30/19 Principal diagnosis: Tibial plateau fracture left knee Interval history: Patient is a 44-year-old male with known history of tobacco and alcohol abuse presents to the emergency room today complaining of left knee pain. Patient indicates that he jumped over a fence and when he landed started having left knee pain. Pain is said to be 10/10 in severity. Denies any chest pain or shortness of breath, no headache or dizziness. Work-up in the emergency room reveals tibial plateau fracture of the left knee. Patient has been started on analgesic medication and consult placed to orthopedic surgeon. Patient ready for discharge Patient is homeless and needs [facility] Objective - Constitutional Vitals: Vital Signs - 12hr 11/29/19 21:42 Temperature 100.9 F H Pulse Rate 83 Respiratory 18 Rate Blood Pressure 130/82 [Right] O2 Sat by Pulse 96 Oximetry General appearance: Present: no acute distress, well-nourished - EENT Eyes: PERRL, EOM intact ENT: hearing intact, clear oral mucosa Ears: bilateral: normal - Neck Neck: supple, normal ROM - Respiratory Respiratory effort: normal Respiratory: bilateral: CTA - Breasts Breasts: normal - Cardiovascular Heart rate: 78 Rhythm: regular Heart Sounds: Present: S1 & S2. Absent: gallop, rub Extremities: pulses intact, No edema, normal color, Full ROM - Gastrointestinal General gastrointestinal: Present: soft, non-tender, non-distended, normal bowel sounds - Genitourinary Male genitourinary: normal - Integumentary Integumentary: clear, warm, dry - Musculoskeletal Musculoskeletal: 1, strength equal bilaterally - Neurologic Neurologic: moves all extremities - Psychiatric Psychiatric: memory intact, appropriate mood/affect, intact judgment & insight - Labs CBC & Chem 7: 11/27/19 06:05 11/27/19 06:05
[2019-11-30] MEDS: NICOTINE 21 MG/24 HR PATCH TD SCH (09:35)
[2019-12-01] MEDS: HYDROmorphone 1 MG/1 ML INJ IV PRN ×7 (00:07→21:32)
[2019-12-01] MEDS: NICOTINE 21 MG/24 HR PATCH TD SCH (10:51)
[2019-12-01] MEDS: oxyCODONE /ACETAMINOPHEN 5-325MG TAB PO PRN ×2 (15:59→23:47)
[2019-12-01] MEDS: ONDANSETRON 4 MG/2 ML INJ IV PRN (21:32)
--- NOTE | 2019-12-01 22:46 | Progress Note ---
Assessment and Plan Assessment and Plan - Patient Problems (1) Fracture of left tibial plateau Current Visit: Yes Status: Acute Plan to address problem: Orthopedic consult appreciated Closed reduction application of external fixator left leg Patient tolerated the procedure well Patient undergoing physical therapy (2) DVT prophylaxis Current Visit: Yes Status: Acute Plan to address problem: Patient on sequential compression device. (3) Full code status Current Visit: Yes Status: Acute 4)Discharge planning issues Patient is ready for discharge, discharge order placed, patient is apparently homeless case management for halfway placement Subjective Date of service: 12/01/19 Principal diagnosis: Tibial plateau fracture left knee Interval history: Patient is a 44-year-old male with known history of tobacco and alcohol abuse presents to the emergency room today complaining of left knee pain. Patient indicates that he jumped over a fence and when he landed started having left knee pain. Pain is said to be 10/10 in severity. Denies any chest pain or shortness of breath, no headache or dizziness. Work-up in the emergency room reveals tibial plateau fracture of the left knee. Patient has been started on analgesic medication and consult placed to orthopedic surgeon. Patient ready for discharge Patient is homeless and needs halfway Objective - Constitutional Vitals: Vital Signs - 12hr 12/01/19 12/01/19 12/01/19 11:37 15:41 19:29 Temperature 98.2 F 98.2 F 98.8 F Pulse Rate 68 66 76 Respiratory 19 20 18 Rate Blood Pressure 112/60 Blood Pressure 123/78 130/82 [Right] O2 Sat by Pulse 96 97 95 Oximetry General appearance: Present: no acute distress, well-nourished - EENT Eyes: PERRL, EOM intact ENT: hearing intact, clear oral mucosa Ears: bilateral: normal - Neck Neck: supple, normal ROM - Respiratory Respiratory effort: normal Respiratory: bilateral: CTA - Breasts Breasts: normal - Cardiovascular Rhythm: regular Heart Sounds: Present: S1 & S2. Absent: gallop, rub Extremities: pulses intact, No edema, normal color, Full ROM - Gastrointestinal General gastrointestinal: Present: soft, non-tender, non-distended, normal bowel sounds - Genitourinary Male genitourinary: normal - Integumentary Integumentary: clear, warm, dry - Musculoskeletal Musculoskeletal: 1, strength equal bilaterally - Neurologic Neurologic: moves all extremities - Psychiatric Psychiatric: memory intact, appropriate mood/affect, intact judgment & insight - Labs CBC & Chem 7: 11/27/19 06:05 11/27/19 06:05
[2019-12-02] MEDS: HYDROmorphone 1 MG/1 ML INJ IV PRN ×6 (02:54→23:20)
[2019-12-02] MEDS: NICOTINE 21 MG/24 HR PATCH TD SCH ×2 (07:48→10:43)
[2019-12-02] MEDS: oxyCODONE /ACETAMINOPHEN 5-325MG TAB PO PRN (20:45)
[2019-12-02] MEDS: ONDANSETRON 4 MG/2 ML INJ IV PRN (23:25)
[2019-12-03] MEDS: HYDROmorphone 1 MG/1 ML INJ IV PRN ×7 (03:17→23:27)
[2019-12-03] MEDS: NICOTINE 21 MG/24 HR PATCH TD SCH (09:33)
[2019-12-03] MEDS: oxyCODONE /ACETAMINOPHEN 5-325MG TAB PO PRN ×2 (10:48→18:42)
--- NOTE | 2019-12-03 15:42 | Vascular Lab Report ---
DUPLEX DOPPLER LOWER EXTREMITY VEINS, LEFT INDICATION: left leg swelling and pain. TECHNIQUE: Duplex doppler imaging was performed through the veins of the left lower extremity using venous compr ession and other maneuvers. COMPARISON: No relevant prior imaging study available. FINDINGS: Left Common femoral vein: Negative. Left Superficial femoral vein: Negative. Left Popliteal vein: Negative. Left Calf veins: Negative. Additional findings: None.. IMPRESSION: 1. No sonographic evidence for DVT in the left lower extremity. Signer Name: Odell Rivera MD Signed: 12/03/2019 3:38 PM Workstation Name: [id number]
--- NOTE | 2019-12-03 22:01 | Progress Note ---
Assessment and Plan Assessment and Plan - Patient Problems (1) Fracture of left tibial plateau Current Visit: Yes Status: Acute Plan to address problem: Orthopedic consult appreciated Closed reduction application of external fixator left leg Patient tolerated the procedure well Patient undergoing physical therapy (2) DVT prophylaxis Current Visit: Yes Status: Acute Plan to address problem: Patient on sequential compression device. (3) Full code status Current Visit: Yes Status: Acute 4)Discharge planning issues Patient is ready for discharge, discharge order placed, patient is apparently homeless case management for senior living placement Subjective Date of service: 12/02/19 Principal diagnosis: Tibial plateau fracture left knee Interval history: Patient is a 44-year-old male with known history of tobacco and alcohol abuse presents to the emergency room today complaining of left knee pain. Patient indicates that he jumped over a fence and when he landed started having left knee pain. Pain is said to be 10/10 in severity. Denies any chest pain or shortness of breath, no headache or dizziness. Work-up in the emergency room reveals tibial plateau fracture of the left knee. Patient has been started on analgesic medication and consult placed to orthopedic surgeon. Patient ready for discharge Patient is homeless and needs senior living Objective - Constitutional Vitals: Vital Signs - 12hr 12/03/19 12/03/19 12/03/19 12:00 16:54 19:41 Temperature 98.7 F 98.4 F 98.6 F Pulse Rate 83 87 84 Respiratory 18 18 16 Rate Blood Pressure 131/82 116/83 Blood Pressure 124/73 [Right] O2 Sat by Pulse 98 94 94 Oximetry General appearance: Present: no acute distress, well-nourished - EENT Eyes: PERRL, EOM intact ENT: hearing intact, clear oral mucosa Ears: bilateral: normal - Neck Neck: supple, normal ROM - Respiratory Respiratory effort: normal Respiratory: bilateral: CTA - Breasts Breasts: normal - Cardiovascular Rhythm: regular Heart Sounds: Present: S1 & S2. Absent: gallop, rub Extremities: pulses intact, No edema, normal color, Full ROM - Gastrointestinal General gastrointestinal: Present: soft, non-tender, non-distended, normal bowel sounds - Genitourinary Male genitourinary: normal - Integumentary Integumentary: clear, warm, dry - Musculoskeletal Musculoskeletal: 1, strength equal bilaterally - Neurologic Neurologic: moves all extremities - Psychiatric Psychiatric: memory intact, appropriate mood/affect, intact judgment & insight - Labs CBC & Chem 7: 11/27/19 06:05 11/27/19 06:05
--- NOTE | 2019-12-03 22:01 | Progress Note ---
Assessment and Plan Assessment and Plan - Patient Problems (1) Fracture of left tibial plateau Current Visit: Yes Status: Acute Plan to address problem: Orthopedic consult appreciated Closed reduction application of external fixator left leg Patient tolerated the procedure well Patient undergoing physical therapy (2) DVT prophylaxis Current Visit: Yes Status: Acute Plan to address problem: Patient on sequential compression device. (3) Full code status Current Visit: Yes Status: Acute 4)Discharge planning issues Patient is ready for discharge, discharge order placed, patient is apparently homeless case management for penit[facility]iary placement Subjective Date of service: 12/03/19 Principal diagnosis: Tibial plateau fracture left knee Interval history: Patient is a 44-year-old male with known history of tobacco and alcohol abuse presents to the emergency room today complaining of left knee pain. Patient indicates that he jumped over a fence and when he landed started having left knee pain. Pain is said to be 10/10 in severity. Denies any chest pain or shortness of breath, no headache or dizziness. Work-up in the emergency room reveals tibial plateau fracture of the left knee. Patient has been started on analgesic medication and consult placed to orthopedic surgeon. Patient ready for discharge Patient is homeless and needs penitentiary Objective - Constitutional Vitals: Vital Signs - 12hr 12/03/19 12/03/19 12/03/19 12:00 16:54 19:41 Temperature 98.7 F 98.4 F 98.6 F Pulse Rate 83 87 84 Respiratory 18 18 16 Rate Blood Pressure 131/82 116/83 Blood Pressure 124/73 [Right] O2 Sat by Pulse 98 94 94 Oximetry General appearance: Present: no acute distress, well-nourished - EENT Eyes: PERRL, EOM intact ENT: hearing intact, clear oral mucosa Ears: bilateral: normal - Neck Neck: supple, normal ROM - Respiratory Respiratory effort: normal Respiratory: bilateral: CTA - Breasts Breasts: normal - Cardiovascular Rhythm: regular Heart Sounds: Present: S1 & S2. Absent: gallop, rub Extremities: pulses intact, No edema, normal color, Full ROM - Gastrointestinal General gastrointestinal: Present: soft, non-tender, non-distended, normal bowel sounds - Genitourinary Male genitourinary: normal - Integumentary Integumentary: clear, warm, dry - Musculoskeletal Musculoskeletal: 1, strength equal bilaterally - Neurologic Neurologic: moves all extremities - Psychiatric Psychiatric: memory intact, appropriate mood/affect, intact judgment & insight - Labs CBC & Chem 7: 11/27/19 06:05 11/27/19 06:05
[2019-12-04] MEDS: HYDROmorphone 1 MG/1 ML INJ IV PRN ×4 (02:26→11:58)
[2019-12-04] MEDS: NICOTINE 21 MG/24 HR PATCH TD SCH ×2 (08:40→11:39)
[2019-12-04 11:17] VITALS: BP 114/73
[2019-12-04] MEDS: oxyCODONE /ACETAMINOPHEN 5-325MG TAB PO PRN (15:03)
== END 2019-12-04 17:57 | disposition home health service (06) | DRG 494 ==
LOC: ED 20:52 → 3A 11-26 00:24 → 3B-SURG 11-26 00:48 → OBSVTOIN 12-01 10:00
PROVIDERS: ADMIT Internal Medicine Geriatric Medicine; ATTEND Internal Medicine
PROC: 0QSH35Z Reposition Left Tibia with External Fixation Device, Percutaneous Approach (ICD-10-PCS; principal; 2019-11-26)
DX: S82.142A Displaced bicondylar fracture of left tibia, initial encounter for closed fracture (principal); W18.39XA Other fall on same level, initial encounter; Y93.89 Activity, other specified; Y92.89 Other specified places as the place of occurrence of the external cause; Y99.8 Other external cause status; F17.210 Nicotine dependence, cigarettes, uncomplicated; F10.10 Alcohol abuse, uncomplicated; Y90.9 Presence of alcohol in blood, level not specified; G47.30 Sleep apnea, unspecified; E66.9 Obesity, unspecified; Z68.29 Body mass index [BMI] 29.0-29.9, adult
CPT/HCPCS: 36415; 71045; 80048; 85025; 85610; 85730; 86850; 86900; 86901; 87641; 93005; 96361; 96365; 96366; 96372; 96375; 99406; G0378; C1713; J0330; J0690; J1100; J1170; J1885; J2250; J2370; J2405; J2704; J3010; J3490; J7030; U0003-CS

== ENCOUNTER 2020-01-21 11:13 | Emergency (ER) | payer SELFPAY ==
[2020-01-21] MEDS ORDERED: ONDANSETRON 4 MG/2 ML INJ IV ONE (11:44)
[2020-01-21] MEDS ORDERED: KETOROLAC 30 MG/1 ML INJ IV ONE (11:44)
[2020-01-21] MEDS ORDERED: HYDROmorphone 1 MG/1 ML INJ IV ONE ×3 (11:45→16:01)
[2020-01-21 12:05] VITALS: BP 127/76
[2020-01-21] MEDS ORDERED: HEPARIN 10,000 UNITS/10 ML VIAL IV ONE (12:45)
[2020-01-21 12:55] LABS: Basophils % (Auto) 0.5 % (0.0-1.8); Eosinophils # (Auto) 0.1 K/mm3 (0.0-0.4); Eosinophils % (Auto) 0.6 % (0.0-4.3); Hematocrit 45.1 % (35.5-45.6); Hemoglobin 15.9 gm/dl (11.8-15.2); Lymphocytes # (Auto) 1.1 K/mm3 (1.2-5.4); Lymphocytes % (Auto) 11.1 % (13.4-35.0); Mean Corpuscular HGB Conc 35 % (32-34); Mean Corpuscular Volume 92 fl (84-94); Monocytes # (Auto) 0.8 K/mm3 (0.0-0.8); Platelet Count 188 K/mm3 (140-440); Red Blood Count 4.93 M/mm3 (3.65-5.03)
--- NOTE | 2020-01-21 12:55 | Vascular Lab Report ---
DUPLEX DOPPLER LOWER EXTREMITY VEINS, LEFT INDICATION: increased pain leg, hx of recent fx and surgery. TECHNIQUE: Duplex doppler imaging was performed through the veins of the left lower extremity using venous compr ession and other maneuvers. COMPARISON: None available. FINDINGS: Common Femoral vein: Positive nonocclusive. Superficial Femoral vein: Positive near occlusive. Popliteal vein: Positive. Calf veins: Positive. Additional findings: None. IMPRESSION: Positive occlusive left lower extremity deep vein thrombosis. Dr. Lobo was notified of the left lower extremity DVT Signer Name: Natanael Cabello MD Signed: 01/21/2020 12:50 PM Workstation Name: [id number]
[2020-01-21 13:00] LABS: Blood Urea Nitrogen 9 mg/dL (9-20); Calcium 9.6 mg/dL (8.4-10.2); Hemolysis Index 10
[2020-01-21] MEDS ORDERED: HEPARIN/ 0.45% NACL DRIP 25,000 UNIT/500 ML BAG IV SCH (13:00)
[2020-01-21 13:02] LABS: BUN/Creatinine Ratio 15
[2020-01-21 13:22] LABS: INR 1.3 (0.87-1.13)
[2020-01-21] MEDS ORDERED: HYDROmorphone 1 MG/1 ML INJ ONE (14:27)
--- NOTE | 2020-01-21 14:43 | Cat Scan Report ---
CTA CHEST WITH IV CONTRAST INDICATION: Possible PE. Left leg DVT. TECHNIQUE: Axial CT images were obtained through the chest after injection of 100 cc Omnipaque 350 IV contrast. 3 plane MIP reconstructions were produced. All CT scans at this location are performed using CT dose reduction for ALARA by means of automated exposure control. COMPARISON: One view of the chest from 11/25/2019. FINDINGS: PULMONARY ARTERIES: Well-opacified with near totally occlusive subsegmental right lower lobe PTE. No other distinct thromboemboli. AORTA AND ARTERIES: No significant abnormality. HEART: No significant abnormality. MEDIASTINUM: No significant abnormality. LUNGS: No suspicious consolidation, nodule or mass. No pneumothorax or pleural effusion. ADDITIONAL FINDINGS: None. UPPER ABDOMEN: No acute findings. BONES: No significant osseous abnormality. IMPRESSION: 1. Right lower lobe PTE without evidence of right heart strain. 2. No other acute abnormality of the chest. CRITICAL RESULT: Time of Discovery (FIREARMS ASSEMBLY SUPERVISOR/CDT): 13:35 Time of Communication (FIREARMS ASSEMBLY SUPERVISOR/CDT): 13:38 Licensed Practitioner Receiving Report: Dr. Lobo Read-Back Performed: Yes. Signer Name: Riki Pittman MD Signed: 01/21/2020 2:39 PM Workstation Name: [id number]
[2020-01-21] MEDS ORDERED: APIXABAN 5 MG TAB PO SCH (16:00)
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
--- NOTE | 2020-01-21 19:04 | Event Note ---
44-year-old male with alcohol dependence, nicotine dependence presents to ED for evaluation of left leg pain. Patient seen and evaluated in the emergency department. Lab and imaging studies reviewed. Patient underwent left lower extremity duplex which showed a left lower extremity deep vein thrombus. Patient reinitiated on therapeutic anticoagulation. Patient treated with pain management. Patient is medically optimized and back to usual state of health and subsequently discharged home and instructed to follow-up with orthopedic surgeon as previously instructed. Patient seen and evaluated prior to discharge but no significant new physical exam findings. Patient afebrile with vital signs that are within normal limits with a pulse oximetry of 99% on room air. - General Limitations: No Limitations General appearance: alert, in no apparent distress - Head Head exam: Present: atraumatic, normocephalic - Eye Eye exam: Present: normal appearance - ENT ENT exam: Present: mucous membranes moist - Neck Neck exam: Present: normal inspection - Respiratory Respiratory exam: Present: normal lung sounds bilaterally. Absent: respiratory distress, wheezes, rales, rhonchi - Cardiovascular Cardiovascular Exam: Present: regular rate, normal rhythm. Absent: systolic murmur, diastolic murmur, rubs, gallop - GI/Abdominal GI/Abdominal exam: Present: soft, normal bowel sounds. Absent: distended, tenderness, guarding, rebound - Rectal Rectal exam: Present: deferred - Extremities Exam Extremities exam: Present: Soft, palpable pulses, absent: normal inspection (Pa tient with external fixation device present. The insertion sites at the femur has some dried blood coming from them but there is no purulent drainage at this time. Leg in general is warm and tender with some very mild erythema. Also mild swelling present.) - Back Exam Back exam: Present: normal inspection - Neurological Exam Neurological exam: Present: alert, oriented X3 - Psychiatric Psychiatric exam: Present: normal affect, normal mood - Skin Skin exam: Present: warm, dry, intact, normal color. Absent: rash
== END 2020-01-21 20:00 | disposition admitted as inpatient to this hospital (09) ==
LOC: ED 11:13
DX: S82.142A Displaced bicondylar fracture of left tibia, initial encounter for closed fracture (principal); I26.99 Other pulmonary embolism without acute cor pulmonale; I82.442 Acute embolism and thrombosis of left tibial vein; Z98.890 Other specified postprocedural states; F17.200 Nicotine dependence, unspecified, uncomplicated; Z79.899 Other long term (current) drug therapy; Z88.6 Allergy status to analgesic agent; X58.XXXA Exposure to other specified factors, initial encounter; Y93.89 Activity, other specified; Y92.89 Other specified places as the place of occurrence of the external cause; Y99.8 Other external cause status
CPT/HCPCS: 36415; 71275; 80048; 85025; 85520; 85610; 85730; 93971; 96365; 96366; 96375; 96376; 99284; J1170; J1644; J1885; J2405; Q9967

== ENCOUNTER 2020-01-28 11:55 | Inpatient (IN) | payer OTHER ==
[2020-01-28] MEDS ORDERED: oxyCODONE /ACETAMINOPHEN 5-325MG TAB PO ONE (12:27)
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
[2020-01-28] MEDS ORDERED: cephALEXin 500 MG CAP PO ONE (12:55)
[2020-01-28] MEDS ORDERED: SULFAMETHOXAZOLE/TRIMETHOPRIM 800/160MG DS TAB PO ONE (12:55)
[2020-01-28] MEDS: chlordiazePOXIDE 25 MG CAP PO PRN (13:15)
[2020-01-28] MEDS: LORazepam 2 MG TAB PO PRN ×2 (13:16→23:51)
[2020-01-28] MEDS ORDERED: SULFAMETHOXAZOLE/TRIMETHOPRIM 800/160MG DS TAB PO SCH (14:00)
[2020-01-28] MEDS ORDERED: cephALEXin 500 MG CAP PO SCH (14:00)
[2020-01-28] MEDS: oxyCODONE /ACETAMINOPHEN 5-325MG TAB PO SCH ×2 (14:12→22:47)
[2020-01-28] MEDS: APIXABAN 5 MG TAB PO SCH ×2 (14:13→22:46)
[2020-01-28 14:39] LABS: Basophils # (Auto) 0.1 K/mm3 (0.0-0.1); Basophils % (Auto) 1.4 % (0.0-1.8); Eosinophils # (Auto) 0.2 K/mm3 (0.0-0.4); Eosinophils % (Auto) 4.2 % (0.0-4.3); Hematocrit 47.5 % (35.5-45.6); Hemoglobin 16.1 gm/dl (11.8-15.2); Lymphocytes # (Auto) 1.1 K/mm3 (1.2-5.4); Lymphocytes % (Auto) 21.9 % (13.4-35.0); Mean Corpuscular HGB Conc 34 % (32-34); Mean Corpuscular Volume 94 fl (84-94); Monocytes # (Auto) 0.6 K/mm3 (0.0-0.8); Monocytes % (Auto) 10.6 % (0.0-7.3); Platelet Count 164 K/mm3 (140-440); Red Blood Count 5.03 M/mm3 (3.65-5.03); Red Cell Distribution Width 14.6 % (13.2-15.2)
[2020-01-28 15:10] LABS: Blood Urea Nitrogen 5 mg/dL (9-20); Calcium 8.5 mg/dL (8.4-10.2); Hemolysis Index 16
[2020-01-28 15:11] LABS: BUN/Creatinine Ratio 10
--- NOTE | 2020-01-28 16:03 | XRay Report ---
LEFT TIBIA-FIBULA 2 VIEW(S) INDICATION / CLINICAL INFORMATION: tibial fracture, pin site infection COMPARISON: 12/04/19 FINDINGS: BONES / JOINT(S): Left lower extremity external fixation device is unchanged. There is no lucency elan und the femoral or tibial pins. Comminuted tibial plateau fracture demonstrates mild interval callus formation. SOFT TISSUES: Moderate circumferential soft tissue edema of the distal left thigh, knee, and lower le g. ADDITIONAL FINDINGS: None. Signer Name: Iza Nunez MD Signed: 01/28/2020 3:58 PM Workstation Name: [id number]
[2020-01-28] MEDS ORDERED: ACETAMINOPHEN 325 MG TAB PO PRN (22:39)
[2020-01-28] MEDS ORDERED: ONDANSETRON 4 MG/2 ML INJ IV PRN (22:39)
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
[2020-01-28] MEDS: SODIUM CHLORIDE 0.9% 1000 ML 1,000 ML IV SCH (23:11)
[2020-01-28] MEDS: CLINDAMYCIN 600 MG/50 mL 600 MG/50 ML BAG IV SCH (23:51)
[2020-01-29 00:38] LABS: Bilirubin,Urine NEG (Negative); Blood,Urine NEG (Negative); Color,Urine Yellow (Yellow); Mucus,Urine 3+ /HPF; Protein,Urine <15 mg/dL mg/dL (Negative); Urobilinogen,Urine < 2.0 mg/dL (<2.0)
[2020-01-29 00:46] LABS: Amphetamine Screen,Urine PRESUMPTIVE NEGATIVE; Benzodiazepines Screen,Urine PRESUMPTIVE POSITIVE; Cannabinoid Screen,Urine PRESUMPTIVE NEGATIVE; Cocaine Screen,Urine PRESUMPTIVE NEGATIVE; Methadone Screen,Urine PRESUMPTIVE NEGATIVE; Opiate Screen,Urine PRESUMPTIVE NEGATIVE
[2020-01-29] MEDS: HYDROmorphone 1 MG/1 ML INJ IV PRN ×4 (01:03→21:43)
[2020-01-29] MEDS: LORazepam 2 MG TAB PO PRN (04:42)
[2020-01-29] MEDS: oxyCODONE /ACETAMINOPHEN 5-325MG TAB PO PRN (04:43)
[2020-01-29 05:44] LABS: Basophils % (Auto) 1.2 % (0.0-1.8); Eosinophils # (Auto) 0.2 K/mm3 (0.0-0.4); Eosinophils % (Auto) 4.5 % (0.0-4.3); Hematocrit 44.5 % (35.5-45.6); Lymphocytes # (Auto) 1.2 K/mm3 (1.2-5.4); Lymphocytes % (Auto) 28.2 % (13.4-35.0); Mean Corpuscular HGB Conc 34 % (32-34); Mean Corpuscular Volume 93 fl (84-94); Monocytes # (Auto) 0.5 K/mm3 (0.0-0.8); Platelet Count 155 K/mm3 (140-440); Red Blood Count 4.78 M/mm3 (3.65-5.03); Red Cell Distribution Width 14.2 % (13.2-15.2)
[2020-01-29 05:54] LABS: Alanine Aminotransferase 14 units/L (7-56); Albumin 3.4 g/dL (3.9-5); BUN/Creatinine Ratio 12; Blood Urea Nitrogen 7 mg/dL (9-20); Calcium 8.8 mg/dL (8.4-10.2); Hemolysis Index 3
[2020-01-29] MEDS: CLINDAMYCIN 600 MG/50 mL 600 MG/50 ML BAG IV SCH ×3 (06:07→22:00)
--- NOTE | 2020-01-29 09:39 | Progress Note ---
Assessment and Plan Assessment and plan: -- Infection at site of external fixator pin Current Visit: Yes Status: Acute Plan to address problem: Continue Unasyn and vancomycin Orthopedic consulted for further evaluation and management --Suicidal ideation; Current Visit: Yes Status: Acute Plan to address problem: suicidal watch/1013 status Psych evaluation noted and appreciated --History of EtOH dependence Current Visit: Yes Status: Chronic , Plan to address problem: Patient initiated on CIWA protocol Closely monitor for withdrawal symptoms Thiamine folic acid --Social issue/patient homelessness Current Visit: Yes Status: Acute Plan to address problem: Case management consult for half-way placement --History of pulmonary embolism Current Visit: Yes Status: Chronic Plan to address problem: pulmonary embolism in November 2019 Noncompliant with Eliquis Hold anticoagulation pending Ortho evaluation -- DVT prophylaxis Current Visit: No Status: Acute Plan to address problem: Eliquis on hold Continue heparin Closely monitor the patient and adjust management as needed Plan of care reviewed with the patient and his nurse History Interval history: I have seen and examined the patient at the bedside Patient's chart and medications reviewed Patient complains of some pain and nausea Mild distress Vital signs noted Hospitalist Physical - Constitutional Vitals: Temp Pulse Resp BP Pulse Ox 98.0 F 88 18 120/66 92 01/29/20 00:45 01/29/20 00:45 01/29/20 05:43 01/29/20 00:45 01/29/20 00:45 General appearance: Present: mild distress, well-nourished - EENT Eyes: Present: PERRL, EOM intact - Neck Neck: Present: supple, normal ROM - Respiratory Respiratory effort: normal Respiratory: bilateral: diminished, negative: rales, rhonchi, wheezing - Cardiovascular Rhythm: regular Heart Sounds: Present: S1 & S2 - Extremities Extremities: abnormal (Surgical pins, edema) Extremity abnormal: edema - Abdominal General gastrointestinal: soft, non-tender, non-distended, normal bowel sounds - Integumentary Integumentary: Present: clear, warm - Psychiatric Psychiatric: appropriate mood/affect - Neurologic Neurologic: moves all extremities Results - Labs CBC & Chem 7: 01/29/20 04:43 01/29/20 04:43 Labs: Laboratory Last Values WBC 4.2 K/mm3 (4.5-11.0) L 01/29/20 04:43 RBC 4.78 M/mm3 (3.65-5.03) 01/29/20 04:43 Hgb 15.0 gm/dl (11.8-15.2) 01/29/20 04:43 Hct 44.5 % (35.5-45.6) 01/29/20 04:43 MCV 93 fl (84-94) 01/29/20 04:43 MCH 31 pg (28-32) 01/29/20 04:43 MCHC 34 % (32-34) 01/29/20 04:43 RDW 14.2 % (13.2-15.2) 01/29/20 04:43 Plt Count 155 K/mm3 (140-440) 01/29/20 04:43 Lymph % (Auto) 28.2 % (13.4-35.0) 01/29/20 04:43 [place] % (Auto) 12.0 % (0.0-7.3) H 01/29/20 04:43 Eos % (Auto) 4.5 % (0.0-4.3) H 01/29/20 04:43 Baso % (Auto) 1.2 % (0.0-1.8) 01/29/20 04:43 Lymph # (Auto) 1.2 K/mm3 (1.2-5.4) 01/29/20 04:43 [place] # (Auto) 0.5 K/mm3 (0.0-0.8) 01/29/20 04:43 Eos # (Auto) 0.2 K/mm3 (0.0-0.4) 01/29/20 04:43 Baso # (Auto) 0.0 K/mm3 (0.0-0.1) 01/29/20 04:43 Seg Neutrophils % 54.1 % (40.0-70.0) 01/29/20 04:43 Seg Neutrophils # 2.3 K/mm3 (1.8-7.7) 01/29/20 04:43 Sodium 141 mmol/L (137-145) 01/29/20 04:43 Potassium 4.3 mmol/L (3.6-5.0) 01/29/20 04:43 Chloride 101.4 mmol/L (98-107) 01/29/20 04:43 Carbon Dioxide 25 mmol/L (22-30) 01/29/20 04:43 Anion Gap 19 mmol/L 01/29/20 04:43 BUN 7 mg/dL (9-20) L 01/29/20 04:43 Creatinine 0.6 mg/dL (0.8-1.3) L 01/29/20 04:43 Estimated GFR > 60 ml/min 01/29/20 04:43 BUN/Creatinine Ratio 12 % 01/29/20 04:43 Glucose 86 mg/dL (75-100) 01/29/20 04:43 Hemoglobin A1c 4.7 % (4-6) 01/29/20 04:43 Calcium 8.8 mg/dL (8.4-10.2) 01/29/20 04:43 Total Bilirubin 0.50 mg/dL (0.1-1.2) 01/29/20 04:43 AST 18 units/L (5-40) 01/29/20 04:43 ALT 14 units/L (7-56) 01/29/20 04:43 Alkaline Phosphatase 94 units/L (35-129) 01/29/20 04:43 Total Protein 6.4 g/dL (6.3-8.2) 01/29/20 04:43 Albumin 3.4 g/dL (3.9-5) L 01/29/20 04:43 Albumin/Globulin Ratio 1.1 % 01/29/20 04:43 Urine Color Yellow (Yellow) 01/29/20 00:15 Urine Turbidity Clear (Clear) 01/29/20 00:15 Urine pH 5.0 (5.0-7.0) 01/29/20 00:15 Ur Specific [place] 1.017 (1.003-1.030) 01/29/20 00:15 Urine Protein <15 mg/dl mg/dL (Negative) 01/29/20 00:15 Urine Glucose (UA) Neg mg/dL (Negative) 01/29/20 00:15 Urine Ketones Neg mg/dL (Negative) 01/29/20 00:15 Urine Blood Neg (Negative) 01/29/20 00:15 Urine Nitrite Neg (Negative) 01/29/20 00:15 Urine Bilirubin Neg (Negative) 01/29/20 00:15 Urine Urobilinogen < 2.0 mg/dL (<2.0) 01/29/20 00:15 Ur Leukocyte Esterase Neg (Negative) 01/29/20 00:15 Urine WBC (Auto) 1.0 /HPF (0.0-6.0) 01/29/20 00:15 Urine RBC (Auto) 2.0 /HPF (0.0-6.0) 01/29/20 00:15 U Epithel Cells (Auto) < 1.0 /HPF (0-13.0) 01/29/20 00:15 Urine Mucus 3+ /HPF 01/29/20 00:15 Salicylates < 0.3 mg/dL (2.8-20.0) L 01/28/20 14:26 Urine Opiates Screen Presumptive negative 01/29/20 00:15 Urine Methadone Screen Presumptive negative 01/29/20 00:15 Acetaminophen 5.0 ug/mL (10.0-30.0) L 01/28/20 14:26 Ur Barbiturates Screen Presumptive negative 01/29/20 00:15 Ur Phencyclidine Scrn Presumptive negative 01/29/20 00:15 Ur Amphetamines Screen Presumptive negative 01/29/20 00:15 U Benzodiazepines Scrn Presumptive positive 01/29/20 00:15 Urine Cocaine Screen Presumptive negative 01/29/20 00:15 U Marijuana (THC) Screen Presumptive negative 01/29/20 00:15 Drugs of Abuse Note Disclamer 01/29/20 00:15 Plasma/Serum Alcohol 0.26 % (0-0.07) H 01/28/20 14:26 Jacob/IV: Voiding Method Urinal IV Catheter Type [Left Peripheral IV Antecubital] Active Medications - Current Medications Current Medications: Generic Name Dose Route Start Last Admin Trade Name Freq PRN Reason Stop Dose Admin Acetaminophen 650 mg 01/28/20 22:39 Tylenol PO Q4H PRN Pain MILD(1-3)/Fever >100.5/YANEZ Apixaban 5 mg 01/28/20 14:00 01/28/20 22:46 Eliquis PO 5 mg Q12HR NISHI Administration Protocol Chlordiazepoxide HCl 50 mg 01/28/20 13:04 01/28/20 13:15 Librium PO 50 mg Q1HR PRN Administration CIWA-Ar 8-15 Famotidine 20 mg 01/29/20 10:00 Pepcid IV BID NISHI Hydromorphone HCl 0.5 mg 01/28/20 22:39 01/29/20 01:03 Dilaudid IV 0.5 mg Q3H PRN Administration Pain , Severe (7-10) Sodium Chloride 1,000 mls @ 75 mls/hr 01/28/20 22:45 01/28/20 23:11 Nacl 0.9% 1000 Ml IV 75 mls/hr DIRECT NISHI Administration Clindamycin HCl 600 mg in 50 mls @ 100 mls/hr 01/28/20 23:00 01/29/20 06:07 Cleocin 600 Mg/50 Ml IV 100 mls/hr Q8HR NISHI Administration Protocol Lorazepam 2 mg 01/28/20 13:04 01/29/20 04:42 Ativan PO 2 mg Q1HR PRN Administration Kristian 8-15 Ondansetron HCl 4 mg 01/28/20 22:39 Zofran IV Q8H PRN Nausea And Vomiting Oxycodone/Acetaminophen 1 tab 01/28/20 22:39 01/29/20 04:43 Percocet 5/325 PO 1 tab Q6H PRN Administration Pain, Moderate (4-6) Sodium Chloride 10 ml 01/29/20 10:00 Sodium Chloride Flush Syringe 10 Ml IV BID NISHI Sodium Chloride 10 ml 01/28/20 22:39 Sodium Chloride Flush Syringe 10 Ml IV PRN PRN LINE FLUSH
[2020-01-29] MEDS ORDERED: FAMOTIDINE 20 MG/2 ML INJ IV SCH (10:00)
[2020-01-29] MEDS: APIXABAN 5 MG TAB PO SCH ×2 (10:14→21:35)
[2020-01-29] MEDS: chlordiazePOXIDE 25 MG CAP PO PRN (10:17)
[2020-01-29] MEDS: SODIUM CHLORIDE 0.9% 1000 ML 1,000 ML IV SCH ×2 (10:24→21:28)
--- NOTE | 2020-01-29 14:14 | Consultation ---
History of Present Illness - Reason for Consult Consult date: 01/29/20 Reason for consult: MHE Requesting physician: IVONE WILKINS - Chief Complaint Chief complaint: Left knee pain with external fixator device - History of Present Psychiatric Illness Per ED Provider: This is a 44 yo male with hx of DVT, PE, alcohol dependence, left tibial plateau fracture with, external fixation device in place who presents with homelessness and pain in LLE. In November 2019, patient underwent closed reduction and application of external fixation device with post-op diagnosis left knee dislocation, comminuted proximal tibial fracture. Due to social circumstances, patient has not been able to follow up with orthopedic surgeon. Last week, patient was diagnosed with DVT/PE. Discharged with Eliquis prescription. Patient was not able to fill this prescription. He did not have transportation to the pharmacy. Patient stated that his last drink was just prior to arrival. He uses crutches to move around. Patient is homeless. He does not have social support. He does not have income. According to electronic medical record, patient was discharged from personal shelter last week. PSYCH HPI And is a 44-year-old , currently unemployed and homeless male with past psychiatric history of bipolar schizophrenia in multiple medical comorbidities including recently fractured left knee associated with recent surgery and external fixation. Patient reported he had broken his knee about 6 to 7 weeks ago while jumping a fence, was admitted to the hospital where he was treated and seen by orthopedic and placed in a nursing shelter. Patient reported he has not been able to follow-up with any of his care, currently report homelessness unemployment with worsening pain in the left lower extremity. Patient reported the social problem medical issues as weighed down on him, he feels he is in poor health, unable to work and earn an income, has no place to stay and can barely do anything for himself becuase of his leg. He endorses being depressed, and wanting to stop living, he rather than to be in pain. PAST PSYCHIATRIC HISTORY Diagnoses: Bipolar schizophrenia Suicide attempts or Self-harm behavior: none reported Prior psychiatric hospitalizations: Yes Substance Abuse history: Alcohol Previous psychiatric medications tried: yes Outpatient treatment: non compliance PAST MEDICAL HISTORY: Family Psychiatric History: None reported or documented SOCIAL HISTORY Marital Status: Living Arrangements: homeless Employment Status: unemployed Access to guns/weapons: none reported Education: High school History of Abuse: none reported Legal History: None reported REVIEW OF SYSTEMS Constitutional: Negative for weight loss ENT: Negative for stridor Respiratory: Negative for cough or hemoptysis MENTAL STATUS EXAMINATION General Appearance and Behavior: Age appropriate, fair hygiene, wearing appropriate clothes, lying in bed, good eye contact, cooperative polite with questioning. Cooperation: Participating/engaged Psychomotor Behavior: psychomotor retardation Mood: Depressed Affect and affective range: depressed, dysthymic, labile and sad Thought Process: Illogical, Thought Content: , Hopelessness, Helplessness, Speech: Regular rate and rhythm, pressured, soft volume, s Intellectual Functioning: Average Suicidal Ideation: Suicidal Homicidal Ideation: Denies HI Impulse Control: Unimpaired Insight and Judgment: Limited insight and judgment Memory: Short term memory intact Attention: Short term memory intact Orientation: Alert, oriented Diagnoses: Assessment and Plan - Psychiatric problem (1) Depression Current Visit: Yes Status: Acute (2) EtOH dependence Current Visit: Yes Status: Chronic Treatment Plan Reviewed patients notes, concern for infection of left lower extremity with plan for surgical removal of external fixation device. Patient not medically stable yet. Recommend re-evaluation when patient is medically stable. MEDICATIONS: Patient started on Seroquel 200QHS and also on wellbutrin Risks, benefits and alternatives of medications discussed with the patient, que vladimirons answered and consent obtained from patient. PSYCHOTHERAPY: Supportive psychotherapy provided MEDICAL: Per primary team DELIRIUM PRECAUTIONS: Please re-orient patient frequently, keep lights on during the day, and minimize benzodiazepines and opiates as these medications could worsen patient's confusion. SAMPLE STEAMER: Per medical team DISPOSITION: TBD when medically stable LEGAL STATUS: 1013 FOLLOW-UP: Will follow when stable Thank you for the consult. Please contact with any questions and/or concerns. Medications and Allergies Allergies Allergy/AdvReac Type Severity Reaction Status Date / Time morphine AdvReac Unknown Verified 11/25/19 21:20 Home Medications Medication Instructions Recorded Confirmed Last Taken Type Apixaban [Eliquis] 5 mg PO BID #28 tablet 01/28/20 Unknown Rx Sulfamethoxazole/Trimethoprim 1 each PO BID 10 Days #20 tablet 01/28/20 Unknown Rx [Bactrim DS TAB] cephALEXin [Keflex] 500 mg PO Q6HR 10 Days #40 capsule 01/28/20 Unknown Rx oxyCODONE /ACETAMINOPHEN [Percocet 1 tab PO Q6HR PRN #10 tablet 01/28/20 Unknown Rx 5/325] Active Meds: Active Medications Acetaminophen (Tylenol) 650 mg PO Q4H PRN PRN Reason: Pain MILD(1-3)/Fever >100.5/YANEZ Apixaban (Eliquis) 5 mg PO Q12HR [facility]; Protocol Last Admin: 01/29/20 10:14 Dose: 5 mg Documented by: Chlordiazepoxide HCl (Librium) 50 mg PO Q1HR PRN PRN Reason: Kristian 12-03 Last Admin: 01/29/20 10:17 Dose: 50 mg Documented by: Famotidine (Pepcid) 20 mg PO BID NISHI Hydromorphone HCl (Dilaudid) 0.5 mg IV Q3H PRN PRN Reason: Pain , Severe (7-10) Last Admin: 01/29/20 13:30 Dose: 0.5 mg Documented by: Sodium Chloride (Nacl 0.9% 1000 Ml) 1,000 mls @ 75 mls/hr IV DIRECT NISHI Last Admin: 01/29/20 10:24 Dose: 75 mls/hr Documented by: Clindamycin HCl (Cleocin 600 Mg/50 Ml) 600 mg in 50 mls @ 100 mls/hr IV Q8HR [facility]; Protocol Last Admin: 01/29/20 13:12 Dose: 100 mls/hr Documented by: Lorazepam (Ativan) 2 mg PO Q1HR PRN PRN Reason: Kristian 12-03 Last Admin: 01/29/20 04:42 Dose: 2 mg Documented by: Ondansetron HCl (Zofran) 4 mg IV Q8H PRN PRN Reason: Nausea And Vomiting Oxycodone/Acetaminophen (Percocet 5/325) 1 tab PO Q6H PRN PRN Reason: Pain, Moderate (4-6) Last Admin: 01/29/20 04:43 Dose: 1 tab Documented by: Sodium Chloride (Sodium Chloride Flush Syringe 10 Ml) 10 ml IV BID NISHI Last Admin: 01/29/20 10:25 Dose: 10 ml Documented by: Sodium Chloride (Sodium Chloride Flush Syringe 10 Ml) 10 ml IV PRN PRN PRN Reason: LINE FLUSH Mental Status Exam - Vital signs Last Vital Signs Temp 97.9 F 01/29/20 12:00 Pulse 76 01/29/20 12:00 Resp 20 01/29/20 12:00 BP 128/62 01/29/20 12:00 Pulse Ox 92 01/29/20 00:45 Results Result Diagrams: 01/29/20 04:43 01/29/20 04:43 Abnormal lab results 01/28/20 01/28/20 01/28/20 Range/Units 14:26 14:26 14:26 WBC (4.5-11.0) K/mm3 Hgb 16.1 H (11.8-15.2) gm/dl Hct 47.5 H (35.5-45.6) % [place] % (Auto) 10.6 H (0.0-7.3) % Eos % (Auto) (0.0-4.3) % Lymph # (Auto) 1.1 L (1.2-5.4) K/mm3 Carbon Dioxide 20 L (22-30) mmol/L BUN 5 L (9-20) mg/dL Creatinine 0.5 L (0.8-1.3) mg/dL Albumin (3.9-5) g/dL Salicylates < 0.3 L (2.8-20.0) mg/dL Acetaminophen (10.0-30.0) ug/mL Plasma/Serum Alcohol (0-0.07) % 01/28/20 01/28/20 01/29/20 Range/Units 14:26 14:26 04:43 WBC 4.2 L (4.5-11.0) K/mm3 Hgb (11.8-15.2) gm/dl Hct (35.5-45.6) % [place] % (Auto) 12.0 H (0.0-7.3) % Eos % (Auto) 4.5 H (0.0-4.3) % Lymph # (Auto) (1.2-5.4) K/mm3 Carbon Dioxide (22-30) mmol/L BUN (9-20) mg/dL Creatinine (0.8-1.3) mg/dL Albumin (3.9-5) g/dL Salicylates (2.8-20.0) mg/dL Acetaminophen 5.0 L (10.0-30.0) ug/mL Plasma/Serum Alcohol 0.26 H (0-0.07) % 01/29/20 Range/Units 04:43 WBC (4.5-11.0) K/mm3 Hgb (11.8-15.2) gm/dl Hct (35.5-45.6) % [place] % (Auto) (0.0-7.3) % Eos % (Auto) (0.0-4.3) % Lymph # (Auto) (1.2-5.4) K/mm3 Carbon Dioxide (22-30) mmol/L BUN 7 L (9-20) mg/dL Creatinine 0.6 L (0.8-1.3) mg/dL Albumin 3.4 L (3.9-5) g/dL Salicylates (2.8-20.0) mg/dL Acetaminophen (10.0-30.0) ug/mL Plasma/Serum Alcohol (0-0.07) % All other labs normal. Assessment and Plan - Psychiatric problem (1) Depression Current Visit: Yes Status: Acute (2) EtOH dependence Current Visit: Yes Status: Chronic Qualifiers: Substance use status: uncomplicated Qualified Code(s): F10.20 - Alcohol dependence, uncomplicated
[2020-01-29] MEDS: OMEGA-3 FATTY ACIDS/FISH OIL 1 GRAM CAP PO SCH ×2 (15:04→21:35)
[2020-01-29] MEDS ORDERED: LACTATED RINGERS 1,000 ML ONE (17:12)
--- NOTE | 2020-01-29 17:26 | Anesthesia Consultation ---
Anesthesia Consult and Med Hx Date of service: 01/29/20 - Airway Anesthetic Teeth Evaluation: Poor ROM Head & Neck: Inadequate Mental/Hyoid Distance: Inadequate Mallampati Class: Class II Intubation Access Assessment: Probably Good - Pulmonary Exam CTA: Yes - Cardiac Exam Cardiac Exam: RRR - Pre-Operative Health Status ASA Pre-Surgery Classification: ASA3, Emergency Proposed Anesthetic Plan: General - Pulmonary Hx Smoking: Yes (2 packs per day) Hx Asthma: Yes Hx Respiratory Symptoms: No SOB: Yes COPD: No Hx Pneumonia: No Hx Sleep Apnea: Yes - Cardiovascular System Hx Hypertension: No Hx Coronary Artery Disease: No (States as a child mom said he has an enlarged heart venticle. ) Hx Heart Attack/AMI: No Hx Angina: No Hx Percutaneous Transluminal Coronary Angioplasty (PTCA): No Hx Cardia Arrhythmia: No Hx Pacemaker: No Hx Internal Defibrillator: No Hx Valvular Heart Disease: No Hx Heart Murmur: No Hx Peripheral Vascular Disease: No - Central Nervous System Hx Neuromuscular Disorder: Yes ( Depression, tremoor noted on upper extremities) Hx Seizures: No CVA: No Hx Back Pain: No Hx Psychiatric Problems: Yes (Suicidal ideation) - Gastrointestinal Hx Ulcer: No Hx Gastroesophageal Reflux Disease: No - Endocrine Hx Renal Disease: No Hx End Stage Renal Disease: No Hx Cirrhosis: No Hx Liver Disease: No Hx Insulin Dependent Diabetes: No Hx Non-Insulin Dependent Diabetes: No Hx Thyroid Disease: No Hx Hypothyroidism: No Hx Hyperthyroidism: No - Hematic Hx Anemia: No Hx Sickle Cell Disease: No - Other Systems Hx Alcohol Use: Yes (Alcohol Dependence) Hx Substance Use: No Hx Cancer: No Hx Obesity: Yes - Additional Comments Anesthesia Medical History Comments: Hx. of DVT and pulmonary embolism. Denied previous anesthesia complications.
--- NOTE | 2020-01-29 17:30 | Anesthesia Day of Surgery ---
Anesthesia Day of Surgery - Day of Surgery Patient Examined: Yes Patient H&P Reviewed: Yes Patient is NPO: Yes Beta Blockers: No Cardiac Clearance: No Pulmonary Clearance: No
[2020-01-29] MEDS ORDERED: dexAMETHasone 20 MG/5 ML VIAL ONE (17:43)
[2020-01-29] MEDS ORDERED: MIDAZOLAM 2 MG/2 ML INJ ONE (17:43)
[2020-01-29] MEDS ORDERED: ONDANSETRON 4 MG/2 ML INJ ONE (17:43)
[2020-01-29] MEDS ORDERED: LIDOCAINE MPF (2%) 20 MG/1 ML VIAL 5 ML ONE (17:43)
[2020-01-29] MEDS ORDERED: HYDROmorphone 1 MG/1 ML INJ ONE (17:43)
[2020-01-29] MEDS ORDERED: propofoL 200 MG/20 ML VIAL IV ONE (17:44)
[2020-01-29] MEDS ORDERED: SODIUM CHLORIDE 0.9% IRR 1,500 ML BOTTLE IR ONE (17:52)
--- NOTE | 2020-01-29 18:22 | Procedure Note ---
Date of procedure: 01/29/20 Pre-op diagnosis: Comminuted tibial plateau fracture left leg status post external fixation Post-op diagnosis: same Procedure: Removal of external fixator left lower extremity Procedure The patient was brought to the OR on the on the hospital bed patient was then transferred onto the OR table supine following induction with MAC anesthesia the patient's left lower extremity was prepped and draped in the usual sterile manner a timeout procedure was done to identify the patient and the correct operative site next using wrench and a pneumatic truck driver instructor the shanz screws were all removed without incident, routine post op dressing applied taken to PACU in stable condition Anesthesia: MAC Surgeon: NICA ESPINOSA Estimated blood loss: minimal Pathology: none Condition: stable Disposition: PACU
--- NOTE | 2020-01-29 19:14 | Post Anesthesia Evaluation ---
- Post Anesthesia Evaluation Patient Participated: Yes Airway Patent: Yes Stable Respiratory Function: Yes Nausea/Vomiting: No Temp > 96.8F: Yes Pain Manageable: Yes Adequeate Hydration: Yes Anesthesia Complications: No Block Receding Appropriately: Not Applicable Patient on Ventilator: No
[2020-01-29] MEDS: FAMOTIDINE 20 MG TAB PO SCH (21:35)
[2020-01-29] MEDS: QUEtiapine 100 MG TAB PO SCH (21:35)
[2020-01-30] MEDS: CLINDAMYCIN 600 MG/50 mL 600 MG/50 ML BAG IV SCH ×3 (05:29→21:24)
[2020-01-30] MEDS: HYDROmorphone 1 MG/1 ML INJ IV PRN ×2 (06:12→09:13)
[2020-01-30] MEDS: LORazepam 2 MG TAB PO PRN ×3 (08:01→21:43)
[2020-01-30] MEDS: buPROPion 100 MG TAB PO SCH ×2 (09:13→14:44)
[2020-01-30] MEDS: OMEGA-3 FATTY ACIDS/FISH OIL 1 GRAM CAP PO SCH ×2 (09:14→21:34)
[2020-01-30] MEDS: APIXABAN 5 MG TAB PO SCH ×2 (09:14→21:34)
[2020-01-30] MEDS: FAMOTIDINE 20 MG TAB PO SCH ×2 (09:14→21:33)
[2020-01-30] MEDS: oxyCODONE /ACETAMINOPHEN 5-325MG TAB PO PRN ×2 (12:38→18:42)
--- NOTE | 2020-01-30 16:08 | Progress Note ---
Assessment and Plan Assessment and plan: -- s/p Removal of external fixator left lower extremity -- Infection at site of external fixator pin Current Visit: Yes Status: Acute Plan to address problem: Comminuted tibial Comminuted tibial plateau fracture left leg status post external fixation Infection at the site of fixator pins On Unasyn and vancomycin Evaluated by orthopedic surgeon Dr. Cardona Patient had s/p Removal of external fixator left lower extremity --Suicidal ideation; Current Visit: Yes Status: Acute Plan to address problem: suicidal watch/1013 status Psych following --History of EtOH dependence Current Visit: Yes Status: Chronic , Plan to address problem: Patient initiated on CIWA protocol Closely monitor for withdrawal symptoms Thiamine folic acid --Social issue/patient homelessness Current Visit: Yes Status: Acute Plan to address problem: Case management consult for halfway placement --History of pulmonary embolism Current Visit: Yes Status: Chronic Plan to address problem: pulmonary embolism in November 2019 Noncompliant with Eliquis Hold anticoagulation pending Ortho evaluation -- DVT prophylaxis Current Visit: No Status: Acute Plan to address problem: Eliquis on hold Continue heparin Closely monitor the patient and adjust management as needed Plan of care reviewed with the patient History Interval history: Patient seen and examined at the bedside Patient's chart and medications reviewed Patient had Removal of external fixator left lower extremity Today patient feels slightly better no new complaints Vital signs reviewed Hospitalist Physical - Constitutional Vitals: Temp Pulse Resp BP Pulse Ox 98.1 F 90 18 119/75 98 01/30/20 15:30 01/30/20 15:30 01/30/20 15:30 01/30/20 15:30 01/30/20 15:30 General appearance: Present: mild distress, well-nourished - EENT Eyes: Present: PERRL, EOM intact - Neck Neck: Present: supple, normal ROM - Respiratory Respiratory effort: normal Respiratory: bilateral: diminished, negative: rales, rhonchi, wheezing - Cardiovascular Rhythm: regular Heart Sounds: Present: S1 & S2 - Extremities Extremities: no ischemia, No edema - Abdominal General gastrointestinal: soft, non-tender, non-distended, normal bowel sounds - Integumentary Integumentary: Present: clear, warm - Psychiatric Psychiatric: appropriate mood/affect, cooperative - Neurologic Neurologic: CNII-XII intact, moves all extremities Results - Labs CBC & Chem 7: 01/29/20 04:43 01/29/20 04:43 Labs: Laboratory Last Values WBC 4.2 K/mm3 (4.5-11.0) L 01/29/20 04:43 RBC 4.78 M/mm3 (3.65-5.03) 01/29/20 04:43 Hgb 15.0 gm/dl (11.8-15.2) 01/29/20 04:43 Hct 44.5 % (35.5-45.6) 01/29/20 04:43 MCV 93 fl (84-94) 01/29/20 04:43 MCH 31 pg (28-32) 01/29/20 04:43 MCHC 34 % (32-34) 01/29/20 04:43 RDW 14.2 % (13.2-15.2) 01/29/20 04:43 Plt Count 155 K/mm3 (140-440) 01/29/20 04:43 Lymph % (Auto) 28.2 % (13.4-35.0) 01/29/20 04:43 [place] % (Auto) 12.0 % (0.0-7.3) H 01/29/20 04:43 Eos % (Auto) 4.5 % (0.0-4.3) H 01/29/20 04:43 Baso % (Auto) 1.2 % (0.0-1.8) 01/29/20 04:43 Lymph # (Auto) 1.2 K/mm3 (1.2-5.4) 01/29/20 04:43 [place] # (Auto) 0.5 K/mm3 (0.0-0.8) 01/29/20 04:43 Eos # (Auto) 0.2 K/mm3 (0.0-0.4) 01/29/20 04:43 Baso # (Auto) 0.0 K/mm3 (0.0-0.1) 01/29/20 04:43 Seg Neutrophils % 54.1 % (40.0-70.0) 01/29/20 04:43 Seg Neutrophils # 2.3 K/mm3 (1.8-7.7) 01/29/20 04:43 Sodium 141 mmol/L (137-145) 01/29/20 04:43 Potassium 4.3 mmol/L (3.6-5.0) 01/29/20 04:43 Chloride 101.4 mmol/L (98-107) 01/29/20 04:43 Carbon Dioxide 25 mmol/L (22-30) 01/29/20 04:43 Anion Gap 19 mmol/L 01/29/20 04:43 BUN 7 mg/dL (9-20) L 01/29/20 04:43 Creatinine 0.6 mg/dL (0.8-1.3) L 01/29/20 04:43 Estimated GFR > 60 ml/min 01/29/20 04:43 BUN/Creatinine Ratio 12 % 01/29/20 04:43 Glucose 86 mg/dL (75-100) 01/29/20 04:43 Hemoglobin A1c 4.7 % (4-6) 01/29/20 04:43 Calcium 8.8 mg/dL (8.4-10.2) 01/29/20 04:43 Total Bilirubin 0.50 mg/dL (0.1-1.2) 01/29/20 04:43 AST 18 units/L (5-40) 01/29/20 04:43 ALT 14 units/L (7-56) 01/29/20 04:43 Alkaline Phosphatase 94 units/L (35-129) 01/29/20 04:43 Total Protein 6.4 g/dL (6.3-8.2) 01/29/20 04:43 Albumin 3.4 g/dL (3.9-5) L 01/29/20 04:43 Albumin/Globulin Ratio 1.1 % 01/29/20 04:43 Urine Color Yellow (Yellow) 01/29/20 00:15 Urine Turbidity Clear (Clear) 01/29/20 00:15 Urine pH 5.0 (5.0-7.0) 01/29/20 00:15 Ur Specific [place] 1.017 (1.003-1.030) 01/29/20 00:15 Urine Protein <15 mg/dl mg/dL (Negative) 01/29/20 00:15 Urine Glucose (UA) Neg mg/dL (Negative) 01/29/20 00:15 Urine Ketones Neg mg/dL (Negative) 01/29/20 00:15 Urine Blood Neg (Negative) 01/29/20 00:15 Urine Nitrite Neg (Negative) 01/29/20 00:15 Urine Bilirubin Neg (Negative) 01/29/20 00:15 Urine Urobilinogen < 2.0 mg/dL (<2.0) 01/29/20 00:15 Ur Leukocyte Esterase Neg (Negative) 01/29/20 00:15 Urine WBC (Auto) 1.0 /HPF (0.0-6.0) 01/29/20 00:15 Urine RBC (Auto) 2.0 /HPF (0.0-6.0) 01/29/20 00:15 U Epithel Cells (Auto) < 1.0 /HPF (0-13.0) 01/29/20 00:15 Urine Mucus 3+ /HPF 01/29/20 00:15 Salicylates < 0.3 mg/dL (2.8-20.0) L 01/28/20 14:26 Urine Opiates Screen Presumptive negative 01/29/20 00:15 Urine Methadone Screen Presumptive negative 01/29/20 00:15 Acetaminophen 5.0 ug/mL (10.0-30.0) L 01/28/20 14:26 Ur Barbiturates Screen Presumptive negative 01/29/20 00:15 Ur Phencyclidine Scrn Presumptive negative 01/29/20 00:15 Ur Amphetamines Screen Presumptive negative 01/29/20 00:15 U Benzodiazepines Scrn Presumptive positive 01/29/20 00:15 Urine Cocaine Screen Presumptive negative 01/29/20 00:15 U Marijuana (THC) Screen Presumptive negative 01/29/20 00:15 Drugs of Abuse Note Disclamer 01/29/20 00:15 Plasma/Serum Alcohol 0.26 % (0-0.07) H 01/28/20 14:26 Jacob/IV: Voiding Method Urinal IV Catheter Type [Left Peripheral IV Antecubital] Active Medications - Current Medications Current Medications: Generic Name Dose Route Start Last Admin Trade Name Freq PRN Reason Stop Dose Admin Acetaminophen 650 mg 01/28/20 22:39 Tylenol PO Q4H PRN Pain MILD(1-3)/Fever >100.5/YANEZ Apixaban 5 mg 01/28/20 14:00 01/30/20 09:14 Eliquis PO 5 mg Q12HR NISHI Administration Protocol Bupropion HCl 100 mg 01/30/20 09:00 01/30/20 14:44 Wellbutrin PO 100 mg 0900,1400 NISHI Administration Chlordiazepoxide HCl 50 mg 01/28/20 13:04 01/29/20 10:17 Librium PO 50 mg Q1HR PRN Administration [facility] 8-15 Famotidine 20 mg 01/29/20 22:00 01/30/20 09:14 Pepcid PO 20 mg BID NISHI Administration Fish Oil 2,000 mg 01/29/20 15:00 01/30/20 09:14 Fish Oil PO 2,000 mg BID NISHI Administration Sodium Chloride 1,000 mls @ 75 mls/hr 01/28/20 22:45 01/29/20 21:28 Nacl 0.9% 1000 Ml IV 75 mls/hr DIRECT NISHI Administration Clindamycin HCl 600 mg in 50 mls @ 100 mls/hr 01/28/20 23:00 01/30/20 14:44 Cleocin 600 Mg/50 Ml IV 02/02/20 14:29 100 mls/hr Q8HR NISHI Administration Protocol Lorazepam 2 mg 01/28/20 13:04 01/30/20 09:14 Ativan PO 2 mg Q1HR PRN Administration [facility] 8-15 Ondansetron HCl 4 mg 01/28/20 22:39 01/29/20 21:43 Zofran IV 4 mg Q8H PRN Administration Nausea And Vomiting Oxycodone/Acetaminophen 1 tab 01/28/20 22:39 01/30/20 12:38 Percocet 5/325 PO 1 tab Q6H PRN Administration Pain, Moderate (4-6) Quetiapine Fumarate 100 mg 01/29/20 22:00 01/29/20 21:35 Seroquel PO 100 mg QHS NISHI Administration Sodium Chloride 10 ml 01/29/20 10:00 01/30/20 09:17 Sodium Chloride Flush Syringe 10 Ml IV 10 ml BID NISHI Administration Sodium Chloride 10 ml 01/28/20 22:39 Sodium Chloride Flush Syringe 10 Ml IV PRN PRN LINE FLUSH Nutrition/Malnutrition Assess - Dietary Evaluation Nutrition/Malnutrition Findings: Nutrition Notes Start: 01/29/20 12:21 Freq: Status: Active Protocol: Document 01/29/20 12:21 LM (Rec: 01/29/20 12:28 LM [id number]) Nutrition Notes Need for Assessment generated from: passenger flagman Initial or Follow up Assessment Other Pertinent Diagnosis ETOH dependence, pulmonary embolism, L tibia plateau fx/ infection, homeless Current Diet Regular Labs/Tests BUN 7 Cr 0.6 Pertinent Medications Reviewed Height 6 ft Weight 99.79 kg [place] Body Weight (kg) 80.90 BMI 29.8 Weight Status Overweight Subjective/Other Information RN screen for skin risk. Tobi score is 18. Pt did not answer phone. Pt has weak nut culler strength and edema. Burn Absent Trauma Absent Minimum of two criteria Yes Fluid Accumulation Mild (non-severe) Reduced Senior Support Engineer Strength Measurably Reduced (severe) #2 Nutrition Diagnosis Increased nutrient needs ( specify in comment below) Comments: Protein Etiology Wound healing As Evidenced by Signs and Symptoms Pt with L tibia plateau fx/ infection, #1 Nutrition Diagnosis Malnutrition Etiology homelessness, ETOH dependence As Evidenced by Signs and Symptoms Pt has weak nut culler strength and edema Is patient on ventilator? No Is Patient Ambulatory and/or Out of Bed No REE-([facility]-confined to bed) 2308.200 Calculation Used for Recommendations [facility] Additional Notes Protein: 124-149g (1.25-1.5g/ kg) Fluid: 1ml/kcal Nutrition Intervention Change Diet Order: continue Goal #1 Meet at least 75% of energy and protein needs Anticipated Discharge Needs: regular Follow-Up By: 01/31/20 Additional Comments F/U for intakes, ONS needs
[2020-01-30] MEDS: QUEtiapine 100 MG TAB PO SCH (21:34)
[2020-01-30] MEDS: SODIUM CHLORIDE 0.9% 1000 ML 1,000 ML IV SCH (21:39)
[2020-01-31] MEDS: CLINDAMYCIN 600 MG/50 mL 600 MG/50 ML BAG IV SCH ×3 (06:26→23:16)
[2020-01-31] MEDS: buPROPion 100 MG TAB PO SCH ×2 (09:14→18:18)
[2020-01-31] MEDS: FAMOTIDINE 20 MG TAB PO SCH ×2 (09:15→23:15)
[2020-01-31] MEDS: APIXABAN 5 MG TAB PO SCH ×2 (09:15→23:14)
--- NOTE | 2020-01-31 11:40 | Progress Note ---
Subjective - Reason for Consult Consult date: 01/31/20 Reason for consult: SI - Chief Complaint Chief complaint: During my interview with the patient, he is lying in bed asleep. He easily arouses. He makes fair eye contact. The patient states "I don't know" when asked was he currently suicidal. He says, "I don't know about being suicidal, but I don't have anything to live for." He says "I just done gave up on life. It's not worth living." REVIEW OF SYSTEMS Constitutional: Negative for weight loss ENT: Negative for stridor Respiratory: Negative for cough or hemoptysis MENTAL STATUS EXAMINATION General Appearance and Behavior: Age appropriate, fair hygiene, wearing appropriate clothes, lying in bed, fair eye contact, cooperative Mood: Depressed Affect and affective range: depressed, dysthymic, labile and sad Thought Process: goal directed Thought Content: Hopelessness Speech: low tone Suicidal Ideation: "I don't know." Homicidal Ideation: Denies HI Hallucinations: denies Delusions: None elicited Insight and Judgment: Limited insight and judgment Memory: Short term memory intact Attention: Short term memory intact Orientation: Alert, oriented Diagnoses: Assessment and Plan - Psychiatric problem (1) Depression Current Visit: Yes Status: Acute (2) EtOH dependence Current Visit: Yes Status: Chronic Treatment Plan MEDICATIONS: Continue current regimen Risks, benefits and alternatives of medications discussed with the patient, questions answered and consent obtained from patient. PSYCHOTHERAPY: Supportive psychotherapy provided MEDICAL: Per primary team DELIRIUM PRECAUTIONS: Please re-orient patient frequently, keep lights on during the day, and minimize benzodiazepines and opiates as these medications could worsen patient's confusion. ELECTRONIC ENGINEERING DRAFTSPERSON: Per medical team DISPOSITION: TBD FOLLOW-UP: Will follow Thank you for the consult. Please contact with any questions and/or concerns. Mental Status Exam - Vital signs Last Vital Signs Temp 97.4 F L 01/31/20 07:35 Pulse 56 L 01/31/20 07:35 Resp 18 01/31/20 07:35 BP 133/80 01/31/20 07:35 Pulse Ox 94 01/31/20 07:35
[2020-01-31] MEDS: oxyCODONE /ACETAMINOPHEN 5-325MG TAB PO PRN ×2 (12:19→18:16)
[2020-01-31] MEDS: OMEGA-3 FATTY ACIDS/FISH OIL 1 GRAM CAP PO SCH ×2 (12:23→23:15)
[2020-01-31] MEDS: SODIUM CHLORIDE 0.9% 1000 ML 1,000 ML IV SCH (12:23)
--- NOTE | 2020-01-31 16:12 | Progress Note ---
Assessment and Plan Assessment and plan: s/p Removal of external fixator left lower extremity -- Infection at site of external fixator pin Current Visit: Yes Status: Acute Plan to address problem: Comminuted tibial plateau fracture left leg status post external fixation Infection at the site of fixator pins s/p Removal of external fixator left lower extremity On clindamycin, supportive care orthopedic surgeon following --Suicidal ideation; Current Visit: Yes Status: Acute Plan to address problem: suicidal watch/1013 status Psych following --History of EtOH dependence Current Visit: Yes Status: Chronic , Plan to address problem: Patient initiated on CIWA protocol No withdrawal symptoms closely monitor Thiamine folic acid --Social issue/patient homelessness Current Visit: Yes Status: Acute Plan to address problem: Patient is homeless, no suicidal ideation DC planning per case management when medically stable --History of pulmonary embolism Current Visit: Yes Status: Chronic Plan to address problem: pulmonary embolism in November 2019 Noncompliant with Eliquis Hold anticoagulation pending Ortho evaluation -- DVT prophylaxis Current Visit: No Status: Acute Plan to address problem: Eliquis on hold Continue heparin Closely monitor the patient and adjust management as needed Disposition per psych and orthopedic History Interval history: I have seen and examined the patient at the bedside Patient's chart and medications reviewed Patient feels slightly better still complains of suicidal thoughts 1013/suicidal watch Vitals reviewed Hospitalist Physical - Constitutional Vitals: Temp Pulse Resp BP Pulse Ox 98.4 F 79 18 113/69 95 01/31/20 11:43 01/31/20 11:43 01/31/20 11:43 01/31/20 11:43 01/31/20 11:43 General appearance: Present: no acute distress, well-nourished, other (Depressed) - EENT Eyes: Present: PERRL, EOM intact - Neck Neck: Present: supple, normal ROM - Respiratory Respiratory effort: normal Respiratory: bilateral: diminished, negative: rales, rhonchi, wheezing - Cardiovascular Rhythm: regular Heart Sounds: Present: S1 & S2 - Extremities Extremities: no ischemia, No edema - Abdominal General gastrointestinal: soft, non-tender, non-distended, normal bowel sounds - Integumentary Integumentary: Present: clear, warm - Psychiatric Psychiatric: appropriate mood/affect, depressed - Neurologic Neurologic: moves all extremities Results - Labs CBC & Chem 7: 01/29/20 04:43 01/29/20 04:43 Labs: Laboratory Last Values WBC 4.2 K/mm3 (4.5-11.0) L 01/29/20 04:43 RBC 4.78 M/mm3 (3.65-5.03) 01/29/20 04:43 Hgb 15.0 gm/dl (11.8-15.2) 01/29/20 04:43 Hct 44.5 % (35.5-45.6) 01/29/20 04:43 MCV 93 fl (84-94) 01/29/20 04:43 MCH 31 pg (28-32) 01/29/20 04:43 MCHC 34 % (32-34) 01/29/20 04:43 RDW 14.2 % (13.2-15.2) 01/29/20 04:43 Plt Count 155 K/mm3 (140-440) 01/29/20 04:43 Lymph % (Auto) 28.2 % (13.4-35.0) 01/29/20 04:43 [place] % (Auto) 12.0 % (0.0-7.3) H 01/29/20 04:43 Eos % (Auto) 4.5 % (0.0-4.3) H 01/29/20 04:43 Baso % (Auto) 1.2 % (0.0-1.8) 01/29/20 04:43 Lymph # (Auto) 1.2 K/mm3 (1.2-5.4) 01/29/20 04:43 [place] # (Auto) 0.5 K/mm3 (0.0-0.8) 01/29/20 04:43 Eos # (Auto) 0.2 K/mm3 (0.0-0.4) 01/29/20 04:43 Baso # (Auto) 0.0 K/mm3 (0.0-0.1) 01/29/20 04:43 Seg Neutrophils % 54.1 % (40.0-70.0) 01/29/20 04:43 Seg Neutrophils # 2.3 K/mm3 (1.8-7.7) 01/29/20 04:43 Sodium 141 mmol/L (137-145) 01/29/20 04:43 Potassium 4.3 mmol/L (3.6-5.0) 01/29/20 04:43 Chloride 101.4 mmol/L (98-107) 01/29/20 04:43 Carbon Dioxide 25 mmol/L (22-30) 01/29/20 04:43 Anion Gap 19 mmol/L 01/29/20 04:43 BUN 7 mg/dL (9-20) L 01/29/20 04:43 Creatinine 0.6 mg/dL (0.8-1.3) L 01/29/20 04:43 Estimated GFR > 60 ml/min 01/29/20 04:43 BUN/Creatinine Ratio 12 % 01/29/20 04:43 Glucose 86 mg/dL (75-100) 01/29/20 04:43 Hemoglobin A1c 4.7 % (4-6) 01/29/20 04:43 Calcium 8.8 mg/dL (8.4-10.2) 01/29/20 04:43 Total Bilirubin 0.50 mg/dL (0.1-1.2) 01/29/20 04:43 AST 18 units/L (5-40) 01/29/20 04:43 ALT 14 units/L (7-56) 01/29/20 04:43 Alkaline Phosphatase 94 units/L (35-129) 01/29/20 04:43 Total Protein 6.4 g/dL (6.3-8.2) 01/29/20 04:43 Albumin 3.4 g/dL (3.9-5) L 01/29/20 04:43 Albumin/Globulin Ratio 1.1 % 01/29/20 04:43 Urine Color Yellow (Yellow) 01/29/20 00:15 Urine Turbidity Clear (Clear) 01/29/20 00:15 Urine pH 5.0 (5.0-7.0) 01/29/20 00:15 Ur Specific [place] 1.017 (1.003-1.030) 01/29/20 00:15 Urine Protein <15 mg/dl mg/dL (Negative) 01/29/20 00:15 Urine Glucose (UA) Neg mg/dL (Negative) 01/29/20 00:15 Urine Ketones Neg mg/dL (Negative) 01/29/20 00:15 Urine Blood Neg (Negative) 01/29/20 00:15 Urine Nitrite Neg (Negative) 01/29/20 00:15 Urine Bilirubin Neg (Negative) 01/29/20 00:15 Urine Urobilinogen < 2.0 mg/dL (<2.0) 01/29/20 00:15 Ur Leukocyte Esterase Neg (Negative) 01/29/20 00:15 Urine WBC (Auto) 1.0 /HPF (0.0-6.0) 01/29/20 00:15 Urine RBC (Auto) 2.0 /HPF (0.0-6.0) 01/29/20 00:15 U Epithel Cells (Auto) < 1.0 /HPF (0-13.0) 01/29/20 00:15 Urine Mucus 3+ /HPF 01/29/20 00:15 Salicylates < 0.3 mg/dL (2.8-20.0) L 01/28/20 14:26 Urine Opiates Screen Presumptive negative 01/29/20 00:15 Urine Methadone Screen Presumptive negative 01/29/20 00:15 Acetaminophen 5.0 ug/mL (10.0-30.0) L 01/28/20 14:26 Ur Barbiturates Screen Presumptive negative 01/29/20 00:15 Ur Phencyclidine Scrn Presumptive negative 01/29/20 00:15 Ur Amphetamines Screen Presumptive negative 01/29/20 00:15 U Benzodiazepines Scrn Presumptive positive 01/29/20 00:15 Urine Cocaine Screen Presumptive negative 01/29/20 00:15 U Marijuana (THC) Screen Presumptive negative 01/29/20 00:15 Drugs of Abuse Note Disclamer 01/29/20 00:15 Plasma/Serum Alcohol 0.26 % (0-0.07) H 01/28/20 14:26 Jacob/IV: Voiding Method Urinal IV Catheter Type [Left Peripheral IV Antecubital] Active Medications - Current Medications Current Medications: Generic Name Dose Route Start Last Admin Trade Name Freq PRN Reason Stop Dose Admin Acetaminophen 650 mg 01/28/20 22:39 Tylenol PO Q4H PRN Pain MILD(1-3)/Fever >100.5/YANEZ Apixaban 5 mg 01/28/20 14:00 01/31/20 09:15 Eliquis PO 5 mg Q12HR NISHI Administration Protocol Bupropion HCl 100 mg 01/30/20 09:00 01/31/20 09:14 Wellbutrin PO 100 mg 0900,1400 NISHI Administration Chlordiazepoxide HCl 50 mg 01/28/20 13:04 01/29/20 10:17 Librium PO 50 mg Q1HR PRN Administration [facility] 8-15 Famotidine 20 mg 01/29/20 22:00 01/31/20 09:15 Pepcid PO 20 mg BID NISHI Administration Fish Oil 2,000 mg 01/29/20 15:00 01/31/20 12:23 Fish Oil PO 2,000 mg BID NISHI Administration Sodium Chloride 1,000 mls @ 75 mls/hr 01/28/20 22:45 01/31/20 12:23 Nacl 0.9% 1000 Ml IV 75 mls/hr DIRECT NISHI Administration Clindamycin HCl 600 mg in 50 mls @ 100 mls/hr 01/28/20 23:00 01/31/20 14:49 Cleocin 600 Mg/50 Ml IV 02/02/20 14:29 100 mls/hr Q8HR NISHI Administration Protocol Lorazepam 2 mg 01/28/20 13:04 01/30/20 21:43 Ativan PO 2 mg Q1HR PRN Administration [facility] [place] 8-15 Ondansetron HCl 4 mg 01/28/20 22:39 01/29/20 21:43 Zofran IV 4 mg Q8H PRN Administration Nausea And Vomiting Oxycodone/Acetaminophen 1 tab 01/28/20 22:39 01/31/20 12:19 Percocet 5/325 PO 1 tab Q6H PRN Administration Pain, Moderate (4-6) Quetiapine Fumarate 100 mg 01/29/20 22:00 01/30/20 21:34 Seroquel PO 100 mg QHS NISHI Administration Sodium Chloride 10 ml 01/29/20 10:00 01/31/20 12:26 Sodium Chloride Flush Syringe 10 Ml IV Not Given BID NISHI Sodium Chloride 10 ml 01/28/20 22:39 Sodium Chloride Flush Syringe 10 Ml IV PRN PRN LINE FLUSH Nutrition/Malnutrition Assess - Dietary Evaluation Nutrition/Malnutrition Findings: Nutrition Notes Start: 01/29/20 12:21 Freq: Status: Active Protocol: Document 01/31/20 10:39 LM (Rec: 01/31/20 10:50 LM [email or web address]) Nutrition Notes Initial or Follow up Reassessment Other Pertinent Diagnosis ETOH dependence, pulmonary embolism, L tibia plateau fx/ infection, homeless Current Diet Regular Labs/Tests Reviewed Pertinent Medications Reviewed Height 6 ft Weight 100.586 kg [place] Body Weight (kg) 80.90 BMI 30.0 Weight change and time frame Wt change note. Pt has leg swelling. Weight Status Overweight Subjective/Other Information Pt asleep at time of visit. Per sitter, pt ate breakfast. Pt has 100% intakes in chart. Percent of energy/protein needs met: 100%/77% Burn Absent Trauma Absent Current % PO Good (75-100%) Minimum of two criteria Yes Fluid Accumulation Mild (non-severe) Reduced Water Supervisor Strength Measurably Reduced (severe) #2 Nutrition Diagnosis Increased nutrient needs ( specify in comment below) Diagnosis Progress(for reassessment Continues documentation) #1 Nutrition Diagnosis Malnutrition Diagnosis Progress(for reassessment Continues documentation) Is patient on ventilator? No Is Patient Ambulatory and/or Out of Bed No REE-([facility]-confined to bed) 2317.740 Calculation Used for Recommendations [facility] Additional Notes Protein: 113-137g (1.25-1.5g/ kg using AdjBW 91kg) Fluid: 1ml/kcal Nutrition Intervention Change Diet Order: continue Goal #1 Meet at least 75% of energy and protein needs Anticipated Discharge Needs: regular Follow-Up By: 02/07/20 Additional Comments F/U for stable intakes
[2020-01-31] MEDS: HYDROmorphone 1 MG/1 ML INJ IV PRN (21:16)
[2020-01-31] MEDS: NICOTINE 7 MG/24 HR PATCH TD SCH (21:17)
[2020-01-31] MEDS: QUEtiapine 100 MG TAB PO SCH (23:15)
[2020-02-01] MEDS: HYDROmorphone 1 MG/1 ML INJ IV PRN ×5 (00:16→23:30)
[2020-02-01] MEDS: OMEGA-3 FATTY ACIDS/FISH OIL 1 GRAM CAP PO SCH ×2 (09:48→21:20)
[2020-02-01] MEDS: oxyCODONE /ACETAMINOPHEN 5-325MG TAB PO PRN ×2 (09:48→19:31)
[2020-02-01] MEDS: NICOTINE 7 MG/24 HR PATCH TD SCH (09:48)
[2020-02-01] MEDS: APIXABAN 5 MG TAB PO SCH ×2 (09:48→21:20)
[2020-02-01] MEDS: FAMOTIDINE 20 MG TAB PO SCH ×2 (09:48→21:20)
[2020-02-01] MEDS: buPROPion 100 MG TAB PO SCH ×2 (09:48→15:15)
--- NOTE | 2020-02-01 12:20 | Progress Note ---
Assessment and Plan Assessment and plan: --Suicidal ideation; Current Visit: Yes Status: Acute Plan to address problem: Patient tells the psychiatrist that he feels suicidal Because of his pain Patient is on oral and IV pain medications Suicidal watch/1013 status Psych following. No indication for inpatient psych treatment -- Infection at site of external fixator pin Current Visit: Yes Status: Acute Plan to address problem: Comminuted tibial plateau fracture left leg status post external fixation Infection at the site of fixator pins s/p Removal of external fixator left lower extremity On clindamycin, supportive care Physical therapy evaluation --History of EtOH dependence Current Visit: Yes Status: Chronic , Plan to address problem: CIWA protocol, Thiamine folic acid No withdrawal symptoms closely monitor --Social issue/patient homelessness Current Visit: Yes Status: Acute Plan to address problem: Patient is homeless, DC planning per case management when medically stable --History of pulmonary embolism Current Visit: Yes Status: Chronic Plan to address problem: pulmonary embolism in November 2019 Noncompliant with Eliquis Hold anticoagulation pending Ortho evaluation -- DVT prophylaxis Current Visit: No Status: Acute Plan to address problem: Eliquis on hold Continue heparin Closely monitor the patient and adjust management as needed Disposition per psych and orthopedic History Interval history: I have seen and examined the patient at the bedside Patient's chart and medications reviewed Patient is alert and awake, Responds appropriately 1013 status per psych for suicidal ideation Patient is homeless Vital signs noted Hospitalist Physical - Constitutional Vitals: Temp Pulse Resp BP Pulse Ox 97.4 F L 66 16 129/84 93 02/01/20 07:35 02/01/20 07:35 02/01/20 07:35 02/01/20 07:35 02/01/20 07:35 General appearance: Present: no acute distress, well-nourished, other (Depressed) - EENT Eyes: Present: PERRL, EOM intact - Neck Neck: Present: supple, normal ROM - Respiratory Respiratory effort: normal Respiratory: bilateral: diminished, negative: rales, rhonchi, wheezing - Cardiovascular Rhythm: regular Heart Sounds: Present: S1 & S2 - Extremities Extremities: no ischemia, No edema - Abdominal General gastrointestinal: soft, non-tender, non-distended, normal bowel sounds - Integumentary Integumentary: Present: clear, warm - Psychiatric Psychiatric: appropriate mood/affect, cooperative - Neurologic Neurologic: moves all extremities Results - Labs CBC & Chem 7: 01/29/20 04:43 01/29/20 04:43 Labs: Laboratory Last Values WBC 4.2 K/mm3 (4.5-11.0) L 01/29/20 04:43 RBC 4.78 M/mm3 (3.65-5.03) 01/29/20 04:43 Hgb 15.0 gm/dl (11.8-15.2) 01/29/20 04:43 Hct 44.5 % (35.5-45.6) 01/29/20 04:43 MCV 93 fl (84-94) 01/29/20 04:43 MCH 31 pg (28-32) 01/29/20 04:43 MCHC 34 % (32-34) 01/29/20 04:43 RDW 14.2 % (13.2-15.2) 01/29/20 04:43 Plt Count 155 K/mm3 (140-440) 01/29/20 04:43 Lymph % (Auto) 28.2 % (13.4-35.0) 01/29/20 04:43 [place] % (Auto) 12.0 % (0.0-7.3) H 01/29/20 04:43 Eos % (Auto) 4.5 % (0.0-4.3) H 01/29/20 04:43 Baso % (Auto) 1.2 % (0.0-1.8) 01/29/20 04:43 Lymph # (Auto) 1.2 K/mm3 (1.2-5.4) 01/29/20 04:43 [place] # (Auto) 0.5 K/mm3 (0.0-0.8) 01/29/20 04:43 Eos # (Auto) 0.2 K/mm3 (0.0-0.4) 01/29/20 04:43 Baso # (Auto) 0.0 K/mm3 (0.0-0.1) 01/29/20 04:43 Seg Neutrophils % 54.1 % (40.0-70.0) 01/29/20 04:43 Seg Neutrophils # 2.3 K/mm3 (1.8-7.7) 01/29/20 04:43 Sodium 141 mmol/L (137-145) 01/29/20 04:43 Potassium 4.3 mmol/L (3.6-5.0) 01/29/20 04:43 Chloride 101.4 mmol/L (98-107) 01/29/20 04:43 Carbon Dioxide 25 mmol/L (22-30) 01/29/20 04:43 Anion Gap 19 mmol/L 01/29/20 04:43 BUN 7 mg/dL (9-20) L 01/29/20 04:43 Creatinine 0.6 mg/dL (0.8-1.3) L 01/29/20 04:43 Estimated GFR > 60 ml/min 01/29/20 04:43 BUN/Creatinine Ratio 12 % 01/29/20 04:43 Glucose 86 mg/dL (75-100) 01/29/20 04:43 Hemoglobin A1c 4.7 % (4-6) 01/29/20 04:43 Calcium 8.8 mg/dL (8.4-10.2) 01/29/20 04:43 Total Bilirubin 0.50 mg/dL (0.1-1.2) 01/29/20 04:43 AST 18 units/L (5-40) 01/29/20 04:43 ALT 14 units/L (7-56) 01/29/20 04:43 Alkaline Phosphatase 94 units/L (35-129) 01/29/20 04:43 Total Protein 6.4 g/dL (6.3-8.2) 01/29/20 04:43 Albumin 3.4 g/dL (3.9-5) L 01/29/20 04:43 Albumin/Globulin Ratio 1.1 % 01/29/20 04:43 Urine Color Yellow (Yellow) 01/29/20 00:15 Urine Turbidity Clear (Clear) 01/29/20 00:15 Urine pH 5.0 (5.0-7.0) 01/29/20 00:15 Ur Specific [place] 1.017 (1.003-1.030) 01/29/20 00:15 Urine Protein <15 mg/dl mg/dL (Negative) 01/29/20 00:15 Urine Glucose (UA) Neg mg/dL (Negative) 01/29/20 00:15 Urine Ketones Neg mg/dL (Negative) 01/29/20 00:15 Urine Blood Neg (Negative) 01/29/20 00:15 Urine Nitrite Neg (Negative) 01/29/20 00:15 Urine Bilirubin Neg (Negative) 01/29/20 00:15 Urine Urobilinogen < 2.0 mg/dL (<2.0) 01/29/20 00:15 Ur Leukocyte Esterase Neg (Negative) 01/29/20 00:15 Urine WBC (Auto) 1.0 /HPF (0.0-6.0) 01/29/20 00:15 Urine RBC (Auto) 2.0 /HPF (0.0-6.0) 01/29/20 00:15 U Epithel Cells (Auto) < 1.0 /HPF (0-13.0) 01/29/20 00:15 Urine Mucus 3+ /HPF 01/29/20 00:15 Salicylates < 0.3 mg/dL (2.8-20.0) L 01/28/20 14:26 Urine Opiates Screen Presumptive negative 01/29/20 00:15 Urine Methadone Screen Presumptive negative 01/29/20 00:15 Acetaminophen 5.0 ug/mL (10.0-30.0) L 01/28/20 14:26 Ur Barbiturates Screen Presumptive negative 01/29/20 00:15 Ur Phencyclidine Scrn Presumptive negative 01/29/20 00:15 Ur Amphetamines Screen Presumptive negative 01/29/20 00:15 U Benzodiazepines Scrn Presumptive positive 01/29/20 00:15 Urine Cocaine Screen Presumptive negative 01/29/20 00:15 U Marijuana (THC) Screen Presumptive negative 01/29/20 00:15 Drugs of Abuse Note Disclamer 01/29/20 00:15 Plasma/Serum Alcohol 0.26 % (0-0.07) H 01/28/20 14:26 Jacob/IV: Voiding Method Urinal IV Catheter Type [Left Peripheral IV Antecubital] Active Medications - Current Medications Current Medications: Generic Name Dose Route Start Last Admin Trade Name Freq PRN Reason Stop Dose Admin Acetaminophen 650 mg 01/28/20 22:39 Tylenol PO Q4H PRN Pain MILD(1-3)/Fever >100.5/YANEZ Apixaban 5 mg 01/28/20 14:00 02/01/20 09:48 Eliquis PO 5 mg Q12HR NISHI Administration Protocol Bupropion HCl 100 mg 01/30/20 09:00 02/01/20 09:48 Wellbutrin PO 100 mg 0900,1400 NISHI Administration Chlordiazepoxide HCl 50 mg 01/28/20 13:04 01/29/20 10:17 Librium PO 50 mg Q1HR PRN Administration [facility] 8-15 Famotidine 20 mg 01/29/20 22:00 02/01/20 09:48 Pepcid PO 20 mg BID NISHI Administration Fish Oil 2,000 mg 01/29/20 15:00 02/01/20 09:48 Fish Oil PO 2,000 mg BID NISHI Administration Hydromorphone HCl 0.5 mg 01/31/20 20:47 02/01/20 12:12 Dilaudid IV 0.5 mg Q3H PRN Administration for pain Clindamycin HCl 600 mg in 50 mls @ 100 mls/hr 01/28/20 23:00 01/31/20 23:16 Cleocin 600 Mg/50 Ml IV 02/02/20 14:29 100 mls/hr Q8HR NISHI Administration Protocol Lorazepam 2 mg 01/28/20 13:04 01/30/20 21:43 Ativan PO 2 mg Q1HR PRN Administration [facility] 8- Nicotine 7 mg 01/31/20 21:00 02/01/20 09:48 Habitrol TD 7 mg QDAY NISHI Administration Ondansetron HCl 4 mg 01/28/20 22:39 01/29/20 21:43 Zofran IV 4 mg Q8H PRN Administration Nausea And Vomiting Oxycodone/Acetaminophen 1 tab 01/28/20 22:39 02/01/20 09:48 Percocet 5/325 PO 1 tab Q6H PRN Administration Pain, Moderate (4-6) Quetiapine Fumarate 100 mg 01/29/20 22:00 01/31/20 23:15 Seroquel PO 100 mg QHS NISHI Administration Sodium Chloride 10 ml 01/29/20 10:00 02/01/20 12:15 Sodium Chloride Flush Syringe 10 Ml IV 10 ml BID NISHI Administration Sodium Chloride 10 ml 01/28/20 22:39 Sodium Chloride Flush Syringe 10 Ml IV PRN PRN LINE FLUSH Nutrition/Malnutrition Assess - Dietary Evaluation Nutrition/Malnutrition Findings: Nutrition Notes Start: 01/29/20 12:21 Freq: Status: Active Protocol: Document 01/31/20 10:39 LM (Rec: 01/31/20 10:50 LM [id number]) Nutrition Notes Initial or Follow up Reassessment Other Pertinent Diagnosis ETOH dependence, pulmonary embolism, L tibia plateau fx/ infection, homeless Current Diet Regular Labs/Tests Reviewed Pertinent Medications Reviewed Height 6 ft Weight 100.586 kg [place] Body Weight (kg) 80.90 BMI 30.0 Weight change and time frame Wt change note. Pt has leg swelling. Weight Status Overweight Subjective/Other Information Pt asleep at time of visit. Per sitter, pt ate breakfast. Pt has 100% intakes in chart. Percent of energy/protein needs met: 100%/77% Burn Absent Trauma Absent Current % PO Good (75-100%) Minimum of two criteria Yes Fluid Accumulation Mild (non-severe) Reduced Information Clerk Cashier Strength Measurably Reduced (severe) #2 Nutrition Diagnosis Increased nutrient needs ( specify in comment below) Diagnosis Progress(for reassessment Continues documentation) #1 Nutrition Diagnosis Malnutrition Diagnosis Progress(for reassessment Continues documentation) Is patient on ventilator? No Is Patient Ambulatory and/or Out of Bed No REE-([place]-confined to bed) [phone] Calculation Used for Recommendations [place] Additional Notes Protein: 113-137g (1.25-1.5g/ kg using AdjBW 91kg) Fluid: 1ml/kcal Nutrition Intervention Change Diet Order: continue Goal #1 Meet at least 75% of energy and protein needs Anticipated Discharge Needs: regular Follow-Up By: 02/07/20 Additional Comments F/U for stable intakes
--- NOTE | 2020-02-01 12:53 | Progress Note ---
Subjective - Reason for Consult Consult date: 02/01/20 Reason for consult: SI - Chief Complaint Chief complaint: During my interview with the patient, he is lying in bed asleep. He easily arouses. He makes fair eye contact. The patient is a/o x 3. He says he's in "severe pain." The patient initially denies suicidal thoughts, but then says, "my pain is so bad I could jump out of the window." He says the pain is what causes him to be suicidal. He says "I just want my pain to be under control." He denies hallucinations of any kind. REVIEW OF SYSTEMS Constitutional: Negative for weight loss ENT: Negative for stridor Respiratory: Negative for cough or hemoptysis MENTAL STATUS EXAMINATION General Appearance and Behavior: Age appropriate, fair hygiene, wearing appropriate clothes, lying in bed, fair eye contact, cooperative Mood: Depressed Affect and affective range: depressed, dysthymic, labile and sad Thought Process: goal directed Thought Content: Hopelessness Speech: low tone Suicidal Ideation: "I don't know." Homicidal Ideation: Denies HI Hallucinations: denies Delusions: None elicited Insight and Judgment: Limited insight and judgment Memory: Short term memory intact Attention: Short term memory intact Orientation: Alert, oriented Diagnoses: Assessment and Plan - Psychiatric problem (1) Depression Current Visit: Yes Status: Acute (2) EtOH dependence Current Visit: Yes Status: Chronic Treatment Plan MEDICATIONS: Continue current regimen Risks, benefits and alternatives of medications discussed with the patient, questions answered and consent obtained from patient. PSYCHOTHERAPY: Supportive psychotherapy provided MEDICAL: Per primary team DELIRIUM PRECAUTIONS: Please re-orient patient frequently, keep lights on during the day, and minimize benzodiazepines and opiates as these medications could worsen patient's confusion. VISUALIZATION DEVELOPER: Per medical team DISPOSITION: TBD, spoke with Dr. Beltran about the patient's pain response. FOLLOW-UP: Will follow Thank you for the consult. Please contact with any questions and/or concerns. Mental Status Exam - Vital signs Last Vital Signs Temp 97.4 F L 02/01/20 07:35 Pulse 66 02/01/20 07:35 Resp 16 02/01/20 07:35 BP 129/84 02/01/20 07:35 Pulse Ox 93 02/01/20 07:35
[2020-02-01] MEDS: CLINDAMYCIN 600 MG/50 mL 600 MG/50 ML BAG IV SCH ×4 (14:20→21:24)
[2020-02-01] MEDS: QUEtiapine 100 MG TAB PO SCH (21:20)
[2020-02-02] MEDS: CLINDAMYCIN 600 MG/50 mL 600 MG/50 ML BAG IV SCH ×2 (06:04→14:16)
[2020-02-02] MEDS: oxyCODONE /ACETAMINOPHEN 5-325MG TAB PO PRN ×3 (06:06→22:27)
[2020-02-02] MEDS: OMEGA-3 FATTY ACIDS/FISH OIL 1 GRAM CAP PO SCH ×2 (09:36→22:27)
[2020-02-02] MEDS: APIXABAN 5 MG TAB PO SCH ×2 (09:36→22:27)
[2020-02-02] MEDS: buPROPion 100 MG TAB PO SCH ×2 (09:36→14:25)
[2020-02-02] MEDS: FAMOTIDINE 20 MG TAB PO SCH ×2 (09:36→22:27)
[2020-02-02] MEDS: NICOTINE 7 MG/24 HR PATCH TD SCH (09:36)
--- NOTE | 2020-02-02 11:29 | Progress Note ---
Assessment and Plan Assessment and plan: --Suicidal ideation; Current Visit: Yes Status: Acute Plan to address problem: Patient tells the psychiatrist that he feels suicidal Because of his pain Patient is on oral and IV pain medications Suicidal watch/1013 status Psych following. No indication for inpatient psych treatment -- Infection at site of external fixator pin Current Visit: Yes Status: Acute Plan to address problem: Comminuted tibial plateau fracture left leg status post external fixation Infection at the site of fixator pins s/p Removal of external fixator left lower extremity On clindamycin, supportive care Physical therapy evaluation --History of EtOH dependence Current Visit: Yes Status: Chronic , Plan to address problem: CIWA protocol, Thiamine folic acid No withdrawal symptoms closely monitor --Social issue/patient homelessness Current Visit: Yes Status: Acute Plan to address problem: Patient is homeless, DC planning per case management when medically stable --History of pulmonary embolism Current Visit: Yes Status: Chronic Plan to address problem: pulmonary embolism in November 2019 Noncompliant with Eliquis Hold anticoagulation pending Ortho evaluation -- DVT prophylaxis Current Visit: No Status: Acute Plan to address problem: Eliquis on hold Continue heparin Closely monitor the patient and adjust management as needed Disposition per psych and orthopedic History Interval history: I have seen and examined the patient at the bedside Patient feels slightly better No new complaints Vital signs noted Hospitalist Physical - Constitutional Vitals: Temp Pulse Resp BP Pulse Ox 97.7 F 58 L 18 146/88 94 02/02/20 07:48 02/02/20 07:48 02/02/20 07:48 02/02/20 07:48 02/02/20 07:48 General appearance: Present: no acute distress, well-nourished, other (Depressed) - EENT Eyes: Present: PERRL, EOM intact - Neck Neck: Present: supple, normal ROM - Respiratory Respiratory effort: normal Respiratory: bilateral: diminished, negative: rales, rhonchi, wheezing - Cardiovascular Rhythm: regular Heart Sounds: Present: S1 & S2 - Extremities Extremities: no ischemia, No edema - Abdominal General gastrointestinal: soft, non-tender, non-distended, normal bowel sounds - Integumentary Integumentary: Present: clear, warm - Psychiatric Psychiatric: appropriate mood/affect, cooperative - Neurologic Neurologic: CNII-XII intact, moves all extremities Results - Labs CBC & Chem 7: 01/29/20 04:43 01/29/20 04:43 Labs: Laboratory Last Values WBC 4.2 K/mm3 (4.5-11.0) L 01/29/20 04:43 RBC 4.78 M/mm3 (3.65-5.03) 01/29/20 04:43 Hgb 15.0 gm/dl (11.8-15.2) 01/29/20 04:43 Hct 44.5 % (35.5-45.6) 01/29/20 04:43 MCV 93 fl (84-94) 01/29/20 04:43 MCH 31 pg (28-32) 01/29/20 04:43 MCHC 34 % (32-34) 01/29/20 04:43 RDW 14.2 % (13.2-15.2) 01/29/20 04:43 Plt Count 155 K/mm3 (140-440) 01/29/20 04:43 Lymph % (Auto) 28.2 % (13.4-35.0) 01/29/20 04:43 [place] % (Auto) 12.0 % (0.0-7.3) H 01/29/20 04:43 Eos % (Auto) 4.5 % (0.0-4.3) H 01/29/20 04:43 Baso % (Auto) 1.2 % (0.0-1.8) 01/29/20 04:43 Lymph # (Auto) 1.2 K/mm3 (1.2-5.4) 01/29/20 04:43 [place] # (Auto) 0.5 K/mm3 (0.0-0.8) 01/29/20 04:43 Eos # (Auto) 0.2 K/mm3 (0.0-0.4) 01/29/20 04:43 Baso # (Auto) 0.0 K/mm3 (0.0-0.1) 01/29/20 04:43 Seg Neutrophils % 54.1 % (40.0-70.0) 01/29/20 04:43 Seg Neutrophils # 2.3 K/mm3 (1.8-7.7) 01/29/20 04:43 Sodium 141 mmol/L (137-145) 01/29/20 04:43 Potassium 4.3 mmol/L (3.6-5.0) 01/29/20 04:43 Chloride 101.4 mmol/L (98-107) 01/29/20 04:43 Carbon Dioxide 25 mmol/L (22-30) 01/29/20 04:43 Anion Gap 19 mmol/L 01/29/20 04:43 BUN 7 mg/dL (9-20) L 01/29/20 04:43 Creatinine 0.6 mg/dL (0.8-1.3) L 01/29/20 04:43 Estimated GFR > 60 ml/min 01/29/20 04:43 BUN/Creatinine Ratio 12 % 01/29/20 04:43 Glucose 86 mg/dL (75-100) 01/29/20 04:43 Hemoglobin A1c 4.7 % (4-6) 01/29/20 04:43 Calcium 8.8 mg/dL (8.4-10.2) 01/29/20 04:43 Total Bilirubin 0.50 mg/dL (0.1-1.2) 01/29/20 04:43 AST 18 units/L (5-40) 01/29/20 04:43 ALT 14 units/L (7-56) 01/29/20 04:43 Alkaline Phosphatase 94 units/L (35-129) 01/29/20 04:43 Total Protein 6.4 g/dL (6.3-8.2) 01/29/20 04:43 Albumin 3.4 g/dL (3.9-5) L 01/29/20 04:43 Albumin/Globulin Ratio 1.1 % 01/29/20 04:43 Urine Color Yellow (Yellow) 01/29/20 00:15 Urine Turbidity Clear (Clear) 01/29/20 00:15 Urine pH 5.0 (5.0-7.0) 01/29/20 00:15 Ur Specific [place] 1.017 (1.003-1.030) 01/29/20 00:15 Urine Protein <15 mg/dl mg/dL (Negative) 01/29/20 00:15 Urine Glucose (UA) Neg mg/dL (Negative) 01/29/20 00:15 Urine Ketones Neg mg/dL (Negative) 01/29/20 00:15 Urine Blood Neg (Negative) 01/29/20 00:15 Urine Nitrite Neg (Negative) 01/29/20 00:15 Urine Bilirubin Neg (Negative) 01/29/20 00:15 Urine Urobilinogen < 2.0 mg/dL (<2.0) 01/29/20 00:15 Ur Leukocyte Esterase Neg (Negative) 01/29/20 00:15 Urine WBC (Auto) 1.0 /HPF (0.0-6.0) 01/29/20 00:15 Urine RBC (Auto) 2.0 /HPF (0.0-6.0) 01/29/20 00:15 U Epithel Cells (Auto) < 1.0 /HPF (0-13.0) 01/29/20 00:15 Urine Mucus 3+ /HPF 01/29/20 00:15 Salicylates < 0.3 mg/dL (2.8-20.0) L 01/28/20 14:26 Urine Opiates Screen Presumptive negative 01/29/20 00:15 Urine Methadone Screen Presumptive negative 01/29/20 00:15 Acetaminophen 5.0 ug/mL (10.0-30.0) L 01/28/20 14:26 Ur Barbiturates Screen Presumptive negative 01/29/20 00:15 Ur Phencyclidine Scrn Presumptive negative 01/29/20 00:15 Ur Amphetamines Screen Presumptive negative 01/29/20 00:15 U Benzodiazepines Scrn Presumptive positive 01/29/20 00:15 Urine Cocaine Screen Presumptive negative 01/29/20 00:15 U Marijuana (THC) Screen Presumptive negative 01/29/20 00:15 Drugs of Abuse Note Disclamer 01/29/20 00:15 Plasma/Serum Alcohol 0.26 % (0-0.07) H 01/28/20 14:26 Jacob/IV: Voiding Method Urinal IV Catheter Type [Right INT / Saline Lock Forearm] IV Catheter Type [Left Peripheral IV Antecubital] Active Medications - Current Medications Current Medications: Generic Name Dose Route Start Last Admin Trade Name Freq PRN Reason Stop Dose Admin Acetaminophen 650 mg 01/28/20 22:39 Tylenol PO Q4H PRN Pain MILD(1-3)/Fever >100.5/YANEZ Apixaban 5 mg 01/28/20 14:00 02/02/20 09:36 Eliquis PO 5 mg Q12HR NISHI Administration Protocol Bupropion HCl 100 mg 01/30/20 09:00 02/02/20 09:36 Wellbutrin PO 100 mg 0900,1400 NISHI Administration Chlordiazepoxide HCl 50 mg 01/28/20 13:04 01/29/20 10:17 Librium PO 50 mg Q1HR PRN Administration [facility] 8-15 Famotidine 20 mg 01/29/20 22:00 02/02/20 09:36 Pepcid PO 20 mg BID NISHI Administration Fish Oil 2,000 mg 01/29/20 15:00 02/02/20 09:36 Fish Oil PO 2,000 mg BID NISHI Administration Hydromorphone HCl 0.5 mg 01/31/20 20:47 02/01/20 23:30 Dilaudid IV 0.5 mg Q3H PRN Administration for pain Clindamycin HCl 600 mg in 50 mls @ 100 mls/hr 01/28/20 23:00 02/02/20 06:04 Cleocin 600 Mg/50 Ml IV 02/02/20 14:29 100 mls/hr Q8HR NISHI Administration Protocol Lorazepam 2 mg 01/28/20 13:04 01/30/20 21:43 Ativan PO 2 mg Q1HR PRN Administration [facility] 8- Nicotine 7 mg 01/31/20 21:00 02/02/20 09:36 Habitrol TD 7 mg QDAY NISHI Administration Ondansetron HCl 4 mg 01/28/20 22:39 01/29/20 21:43 Zofran IV 4 mg Q8H PRN Administration Nausea And Vomiting Oxycodone/Acetaminophen 1 tab 01/28/20 22:39 02/02/20 06:06 Percocet 5/325 PO 1 tab Q6H PRN Administration Pain, Moderate (4-6) Quetiapine Fumarate 100 mg 01/29/20 22:00 02/01/20 21:20 Seroquel PO 100 mg QHS NISHI Administration Sodium Chloride 10 ml 01/29/20 10:00 02/02/20 09:39 Sodium Chloride Flush Syringe 10 Ml IV 10 ml BID NISHI Administration Sodium Chloride 10 ml 01/28/20 22:39 Sodium Chloride Flush Syringe 10 Ml IV PRN PRN LINE FLUSH Nutrition/Malnutrition Assess - Dietary Evaluation Nutrition/Malnutrition Findings: Nutrition Notes Start: 01/29/20 12:21 Freq: Status: Active Protocol: Document 01/31/20 10:39 LM (Rec: 01/31/20 10:50 LM [id number]) Nutrition Notes Initial or Follow up Reassessment Other Pertinent Diagnosis ETOH dependence, pulmonary embolism, L tibia plateau fx/ infection, homeless Current Diet Regular Labs/Tests Reviewed Pertinent Medications Reviewed Height 6 ft Weight 100.586 kg [place] Body Weight (kg) 80.90 BMI 30.0 Weight change and time frame Wt change note. Pt has leg swelling. Weight Status Overweight Subjective/Other Information Pt asleep at time of visit. Per sitter, pt ate breakfast. Pt has 100% intakes in chart. Percent of energy/protein needs met: 100%/77% Burn Absent Trauma Absent Current % PO Good (75-100%) Minimum of two criteria Yes Fluid Accumulation Mild (non-severe) Reduced Licensed Chemical Spray Technician Strength Measurably Reduced (severe) #2 Nutrition Diagnosis Increased nutrient needs ( specify in comment below) Diagnosis Progress(for reassessment Continues documentation) #1 Nutrition Diagnosis Malnutrition Diagnosis Progress(for reassessment Continues documentation) Is patient on ventilator? No Is Patient Ambulatory and/or Out of Bed No REE-([place]-St. Jeor-confined to bed) [phone] Calculation Used for Recommendations [place]-St Jeor Additional Notes Protein: 113-137g (1.25-1.5g/ kg using AdjBW 91kg) Fluid: 1ml/kcal Nutrition Intervention Change Diet Order: continue Goal #1 Meet at least 75% of energy and protein needs Anticipated Discharge Needs: regular Follow-Up By: 02/07/20 Additional Comments F/U for stable intakes
--- NOTE | 2020-02-02 14:50 | Progress Note ---
Subjective - Reason for Consult Consult date: 02/02/20 Reason for consult: SI - Chief Complaint Chief complaint: During my interview with the patient, he is lying in bed asleep. He easily arouses. The patient is oriented x 3. A sitter is at bedside. When asking the patient how was he feeling, he says "I'm hurting pretty bad." He says, "I need pain medication." When asked about suicidal thoughts, the patient states, "it's because no-one is doing anything about my pain. I told you, I just want the pain to stop. My leg is killing me." When asking the patient was his leg pain the source of his suicidal thoughts, he says, "yes, they are not helping my pain." He denies hallucinations of any kind. REVIEW OF SYSTEMS Constitutional: Negative for weight loss ENT: Negative for stridor Respiratory: Negative for cough or hemoptysis MENTAL STATUS EXAMINATION General Appearance and Behavior: Age appropriate, fair hygiene, wearing appropriate clothes, lying in bed, fair eye contact, cooperative Mood: "hurting pretty bad." Affect and affective range: restricted Thought Process: goal directed Thought Content: logical Speech: Normal tone and pace Suicidal Ideation: "I don't know." Homicidal Ideation: Denies HI Hallucinations: denies Delusions: None elicited Insight and Judgment: Limited insight and judgment Memory: Short term memory intact Attention: Short term memory intact Orientation: Alert, oriented Diagnoses: Assessment and Plan - Psychiatric problem (1) Depression Current Visit: Yes Status: Acute (2) EtOH dependence Current Visit: Yes Status: Chronic Treatment Plan D/c 1013 MEDICATIONS: Continue current regimen Risks, benefits and alternatives of medications discussed with the patient, questions answered and consent obtained from patient. PSYCHOTHERAPY: Supportive psychotherapy provided MEDICAL: Per primary team DELIRIUM PRECAUTIONS: Please re-orient patient frequently, keep lights on during the day, and minimize benzodiazepines and opiates as these medications could worsen patient's confusion. LAST SCOURER: Per medical team DISPOSITION: Do not recommend acute inpatient psychiatric treatment at this time. The patient's emotional state is contingent on his pain being controlled. Spoke with Dr. Belrtan yesterday, as the patient feels as if his pain is inadequately controlled. The carbon sequestration plant manager to give resources for outpatient psych and cognitive behavior therapy. The patient is to follow up in 7 to 14 days upon discharge. FOLLOW-UP: Will sign off. Please re-consult if needed in the future. Thank you for the consult. Please contact with any questions and/or concerns. Mental Status Exam - Vital signs Last Vital Signs Temp 97.7 F 02/02/20 12:00 Pulse 62 02/02/20 12:00 Resp 17 02/02/20 12:00 BP 145/84 02/02/20 12:00 Pulse Ox 95 02/02/20 12:00
[2020-02-02] MEDS: HYDROmorphone 1 MG/1 ML INJ IV PRN ×2 (15:50→19:57)
[2020-02-02] MEDS: QUEtiapine 100 MG TAB PO SCH (22:27)
[2020-02-03] MEDS: HYDROmorphone 1 MG/1 ML INJ IV PRN (01:43)
[2020-02-03] MEDS: oxyCODONE /ACETAMINOPHEN 5-325MG TAB PO PRN ×3 (06:25→17:36)
[2020-02-03] MEDS: OMEGA-3 FATTY ACIDS/FISH OIL 1 GRAM CAP PO SCH (09:46)
[2020-02-03] MEDS: APIXABAN 5 MG TAB PO SCH (09:47)
[2020-02-03] MEDS: FAMOTIDINE 20 MG TAB PO SCH (09:47)
[2020-02-03] MEDS: buPROPion 100 MG TAB PO SCH ×2 (09:47→14:36)
[2020-02-03] MEDS: NICOTINE 7 MG/24 HR PATCH TD SCH (09:48)
--- NOTE | 2020-02-03 12:43 | Discharge Summary ---
Providers - Providers Date of Admission: 01/31/20 19:14 Date of discharge: 02/03/20 Attending physician: ROBERTO BENOIT 01/28/20 12:27 Consult to Case Management [CONS] Stat Services Needed at Discharge: Mobile Marketing Manager Notified:: n 01/28/20 13:27 Consult to Mental Health [CONS] Stat Reason For Exam: suicidal ideation 01/28/20 15:07 Consult to Physician [CONS] Stat Comment: Consulting Provider: NICA ESPINOSA Physician Instructions: Reason For Exam: pin site infection 01/29/20 07:16 Consult to Wound/ET Nurse [CONS] Routine Reason For Exam: wound eval 02/01/20 12:46 Physical Therapy Evaluation and Treat [CONS] Routine Comment: Reason For Exam: post-OP gait training Primary care physician: FIELD MARKETING SPECIALIST Hospitalization Reason for admission: Infection of external fixator area of the leg Condition: Stable Pertinent studies: X-ray tibia-fibula Hospital course: History of present illness: 44-year-old male patient with history of pulmonary embolism, alcohol dependence and left tibia plateau fracture with external fixation device was admitted through emergency room with pain swelling and infection in the fixation region. Patient was admitted started empiric antibiotics elevation of the limb and supportive care subsequently evaluated by orthopedic surgeon , who removed the external fixation device , patient received physical therapy occupational therapy , symptoms resolved Patient also had suicidal ideation , placed on 1013 status evaluated by psych , symptoms improved , suicidal ideation completely resolved , comfortably discontinued , psych cleared for discharge .closely monitor for alcohol withdrawal symptoms CIWA protocol . Today patient is comfortable no new complaints back to baseline status . Hemodynamically clinically stable at discharge . Stable at discharge, CM assisting with discharge planning. Discharge diagnosis: --Suicidal ideation; resolved Current Visit: Yes Status: Acute. Evaluated by psych, cleared -- Infection at site of external fixator pin Current Visit: Yes Status: Acute s/p Removal of external fixator left lower extremity Received antibiotics --History of EtOH dependence Current Visit: Yes Status: Chronic Advised to quit alcohol intake, --Social issue/patient homelessness Current Visit: Yes Status: Acute Plan to address problem: DC planning per CM --History of pulmonary embolism Current Visit: Yes Status: Chronic Plan to address problem: On Eliquis Stable at discharge Disposition: DC-01 TO HOME OR SELFCARE Time spent for discharge: 32 min Core Measure Documentation - Palliative Care Palliative Care/ Comfort Measures: Not Applicable - Core Measures Any of the following diagnoses?: none Exam - Constitutional Vitals: Temp Pulse Resp BP Pulse Ox 97.5 F L 60 20 122/73 94 02/03/20 11:00 02/03/20 11:00 02/03/20 11:00 02/03/20 11:00 02/03/20 11:00 General appearance: Present: no acute distress, well-nourished - EENT Eyes: Present: PERRL, EOM intact - Neck Neck: Present: supple, normal ROM - Respiratory Respiratory effort: normal Respiratory: bilateral: diminished, negative: rales, rhonchi, wheezing - Cardiovascular Rhythm: regular Heart Sounds: Present: S1 & S2 - Extremities Extremities: no ischemia, No edema - Abdominal General gastrointestinal: Present: soft, non-tender, non-distended, normal bowel sounds - Integumentary Integumentary: Present: clear, warm - Musculoskeletal Musculoskeletal: strength equal bilaterally - Psychiatric Psychiatric: appropriate mood/affect, cooperative - Neurologic Neurologic: moves all extremities Plan Activity: advance as tolerated, fall precautions Diet: regular Additional Instructions: Advised to see [facility] for schedule. advised to follow with orthopedic surgeon, primary care physician, private psychiatrist per schedule Follow up with: LIBRADO SOLIMAN MD [Primary Care Provider] - 7 Days NICA ESPINOSA MD [Staff Physician] - 14 Days Prescriptions: Apixaban [Eliquis] 5 mg PO Q12HR #28 tablet Famotidine [Pepcid] 20 mg PO BID #30 tablet oxyCODONE /ACETAMINOPHEN [Percocet 5/325 mg] 1 tab PO BID PRN #10 tablet PRN Reason: Pain, Moderate (4-6)
[2020-02-03 16:10] VITALS: BP 130/75
== END 2020-02-03 18:40 | disposition home or self-care (01) | DRG 496 ==
LOC: ED 11:55 → 3A 15:28 → 3B-SURG 01-29 18:41 → OBSVTOIN 01-31 19:14
PROVIDERS: ADMIT Internal Medicine; ATTEND Internal Medicine
PROC: 0QPH05Z Removal of External Fixation Device from Left Tibia, Open Approach (ICD-10-PCS; principal; 2020-01-29)
DX: T84.623A Infection and inflammatory reaction due to internal fixation device of left tibia, initial encounter (principal); R45.851 Suicidal ideations; I82.442 Acute embolism and thrombosis of left tibial vein; F10.20 Alcohol dependence, uncomplicated; Y90.9 Presence of alcohol in blood, level not specified; F17.210 Nicotine dependence, cigarettes, uncomplicated; J45.909 Unspecified asthma, uncomplicated; F32.9 Major depressive disorder, single episode, unspecified; Y83.8 Other surgical procedures as the cause of abnormal reaction of the patient, or of later complication, without mention of misadventure at the time of the procedure; E66.9 Obesity, unspecified; Z68.31 Body mass index [BMI] 31.0-31.9, adult; Z59.0 Homelessness; Z88.5 Allergy status to narcotic agent; Y92.098 Other place in other non-institutional residence as the place of occurrence of the external cause
CPT/HCPCS: 36415; 80048; 80053; 80307; 80320; 81001; 83036; 85025; 96374; G0378; G0480; J1100; J1170; J2250; J2405; J2704; J7030; J7120